=== PATIENT | male | born 1950 | race Caucasian/White ===

== ENCOUNTER 2018-04-24 11:19 | Inpatient (IN) ==
[~2018-04-24 11:19] MED LIST: Lidocaine PF 1% Inj 5 ML Syringe INFILTRATN ONE; Phenylephrine/NS 1000 MCG/10ML Syringe IV.PUSH ONE
[2018-04-24] MEDS ORDERED: Metoprolol Tartrate 25 MG Tablet PO SCH (12:00)
[2018-04-24] MEDS ORDERED: Chlorhexidine Gluconate 2% 1 Pack (2 Cloths) TOPICAL SCH (12:00)
[2018-04-24] MEDS ORDERED: Sodium Chlor 0.9% Inj 500 ML IV.SIG SCH (12:00)
[2018-04-24] MEDS ORDERED: Dextrose 5%/NaCl 0.9% Inj 1,000 ML IV.SIG SCH (12:15)
[2018-04-24] MEDS ORDERED: Sugammadex Inj 200 MG/2 ML Vial IV.PUSH ONE (15:03)
--- NOTE | 2018-04-24 15:45 | P.OP ---
- Preoperative Diagnosis (1) Colon cancer - Postoperative Diagnosis (1) Colon cancer Date of procedure: 04/24/18 Anesthesia: СВЕТЛАНА Surgeon: Brayan Gann DO Operation and Findings: 67-year-old male who elected to undergo exploratory laparotomy by Dr. Hermosillo. Request made for bilateral ureteral catheter insertion. The patient was placed in the dorsal lithotomy position, prepped and draped in sterile fashion, received preprocedure buttocks and general endotracheal tube anesthesia was administered. 22 Brazilian cystoscope was inserted the bladder sanches cystoscopy did not reveal any abnormalities. Left ureteral orifice was identified inflammatory catheter was inserted in the left ureteral orifice over a 0.35 sensor wire. This was repeated on the right side without difficulty. A 16 Brazilian Schroeder catheter was then inserted and the catheters were attached to the Schroeder. The patient tolerated the procedure well.
[2018-04-24 16:38] LABS: Hematocrit 37.5 % (39.0-51.0); Hemoglobin 12.3 gm/dL (13.0-17.0)
[2018-04-24] MEDS ORDERED: fentaNYL Citrate Inj 100 MCG/2 ML Ampul ONE (17:22)
[2018-04-24] MEDS ORDERED: Potassium Chlor 20 mEq Premix 20 MEQ/100 ML PIGGYBACK IV.SIG PRN (17:47)
[2018-04-24] MEDS ORDERED: Potassium Chlor 40 mEq Premix 40 MEQ/100 ML PIGGYBACK IV.SIG PRN (17:47)
[2018-04-24] MEDS ORDERED: Dextrose 50% in Water 50 ML Vial IV.PUSH PRN (17:54)
[2018-04-24] MEDS ORDERED: Zolpidem Tartrate 5 MG Tablet PO PRN (17:54)
[2018-04-24] MEDS ORDERED: Morphine Inj 4 MG/ML Vial ONE ×2 (18:07)
[2018-04-24] MEDS ORDERED: Morphine Inj 30 MG/30 ML PCA.VIAL PCA ONE (18:17)
[2018-04-24] MEDS ORDERED: *morphine SULFATE 4 MG/ML PERIprocedure ONLY ONE ×3 (18:17→19:06)
[2018-04-24] MEDS ORDERED: *Meperidine Inj 25 MG/ML Vial PERIprocedural Use ONLY ONE (18:35)
[2018-04-24] MEDS ORDERED: Morphine Inj 30 MG/30 ML PCA.VIAL PCA PRN (18:35)
[2018-04-24] MEDS ORDERED: Naloxone Inj 0.4 MG/ML Vial IV.PUSH PRN (18:35)
[2018-04-24] MEDS: KCL 20 mEq/D5W/LR Inj 1,000 ML IV.CONT SCH ×2 (18:38→23:02)
[2018-04-24] MEDS: Insulin NovoLIN Regular Correctional Sugar Inj SQ SCH ×2 (18:47→23:22)
[2018-04-24 18:53] LABS: Baso % (Auto) 0.3 % (0.0-2.0); Eos % (Auto) 0.1 % (0.0-4.0); Hematocrit 36.6 % (39.0-51.0); Hemoglobin 12.3 gm/dL (13.0-17.0); Lymph # (Auto) 1.1 th/mm3 (1.0-4.8); Lymph % (Auto) 7.7 % (9.0-44.0); Mean Corpuscular HGB Conc 33.5 % (32.0-36.0); Mean Corpuscular Hemoglobin 30.3 pg (27.0-34.0); Mean Corpuscular Volume 90.4 fL (80.0-100.0); Mean Platelet Volume 8.5 fL (7.0-11.0); Mono % (Auto) 7.2 % (0.0-8.0); Neut # (Auto) 11.9 th/mm3 (1.8-7.7); Neut % (Auto) 84.7 % (16.0-70.0); Platelet Count 258 th/mm3 (150-450); Red Blood Count 4.04 mil/mm3 (4.50-5.90); Red Cell Distribution Width 14.4 % (11.6-17.2)
[2018-04-24 19:06] LABS: Calcium 7.8 mg/dL (8.5-10.1); Carbon Dioxide 20.9 meq/L (21.0-32.0); Potassium 3.9 meq/L (3.5-5.1)
--- NOTE | 2018-04-24 19:59 | MP ---
cc: Vitaliy Salinas MD, John T MD DATE OF OPERATION: 04/24/2018 PREOPERATIVE DIAGNOSIS: 1. Recurrent rectal polyp at colorectal anastomosis. 2. Large lower abdominal ventral hernia. POSTOPERATIVE DIAGNOSIS: 1. Recurrent villous polyp at colorectal anastomosis. 2. Large inferior ventral hernia. OPERATIVE PROCEDURES: 1. Extensive lysis of adhesions. 2. Rectosigmoidectomy with low anterior resection and diverting ileostomy. 3. Repair of enterotomy. 4. Ventral hernia repair. SURGEON: Vitaliy Salinas MD PLASTER PATTERN CASTER: Jonah Oreilly MD ANESTHESIA: General endotracheal. BLOOD LOSS: 800 mL OPERATING TIME 3 hours and 10 minutes. OPERATIVE FINDINGS: This patient was referred to md with a recurrent large villous lesion circumferentially around his colorectal anastomosis. He had his first surgery in [address] Barron Hendrickson in [place]. At that time, it was quite a difficult operation. It was started laparoscopically and then open surgery; 2000 mL of blood were lost and the patient was quite ill postoperatively in the intensive care unit but recovered. At that time, they felt that they resected this whole villous lesion and a colorectal anastomosis was done. The patient developed a wound infection in the lower abdomen and then a large ventral hernia and went to Dr. Otto who did a repair of ventral hernia with Dual mesh intraabdominally. Since that time, the ventral hernia has recurred in the lower abdomen and the patient recurred with this villous lesion circumferentially around his anastomosis. Also, the patient was found to have a heavy gauge Prolene suture that was visible on endoscopy at the anastomosis. The original surgery was done in 2012. The ventral hernia was done in 2013. Exploration of the abdominal cavity revealed that the liver and the gallbladder were all palpably normal. The colon and small bowel was all normal except a significant portion of the upper small bowel was stuck to his mesh anteriorly and needed to be dissected free. In retracting the fascia, a serosal tear was made in one of the small bowel loops and at repair of this serosal tear transversely there was a mucosal opening about a millimeter in size, but no leakage of small bowel contents. The small bowel enterotomy was closed with interrupted 3-0 Vicryl seromuscular sutures. This was inspected several times during the procedure and, at the termination of the procedure, appeared to be an adequate repair. Our attention was turned to the sigmoid colon, which was found to be hugely redundant with adequate length for colorectal anastomosis without mobilizing the splenic flexure. He also had densely adherent rectum to the sacrum and needed sharp dissection right along the sacrum posteriorly and with electrocautery to mobilize this, but once the rectum was mobilized the lower rectum was soft and a stapler was able to be used close the lower rectum and a colorectal anastomosis was done with a diverting ileostomy. Upon opening the specimen, it was noted that the polyp was fully removed and the specimen, but at this area of the Prolene suture it was noted that there was a small hole in the rectum; however, it did not appear to contain any of the villous tumor. This clearly occurred at the time of mobilizing this densely scarred rectum off of his sacrum. OPERATIVE TECHNIQUE: The patient was placed on the table in the supine position. After adequate general endotracheal anesthesia, the legs were placed in the perineal lithotomy position and the abdomen and perineum were prepped and draped in the usual manner. Dr. Brayan aGnn eventually entered the case and placed bilateral ureteral catheters for easy identification and protection of the ureters. After the abdomen was prepped and draped in the usual manner, a midline incision was made from pubis to the xiphoid and the upper part of the abdomen had never been opened and we entered the abdomen in the upper part of the abdomen. The adhesions of the small bowel in the upper portion were stuck to the mesh just at the level of the umbilicus. They were dissected free of the mesh fairly easily with sharp dissection. Upon placing traction on the fascia and the mesh, an area of serosal tear was made in one of the small bowel loops and, on inspection, there was a small hole in the mucosa as well. This was repaired with several interrupted 3-0 Vicryl seromuscular sutures. Once all the adhesions were taken down, we turned our attention to the left colic gutter and the sigmoid colon, which was hugely redundant, was mobilized along its peritoneal reflection up to but not including the splenic flexure. Next, the superior hemorrhoidal vessels had not been fully previously divided and we went ahead and isolated those and then doubly clamped, cut, and doubly ligated the superior hemorrhoidal vessels, really the inferior mesenteric artery complex with 0 Vicryl ligatures. Once this was completed, the retrorectal space was identified and dissection was taken down the retrorectal space and the dense fibrosis from the previous mobilization and anastomosis. We encountered this heavy Prolene suture and it was dissected free of the sacrum again, apparently making a small colotomy at the area of the anastomosis near the villous tumor but no villous lesion was identified here. This was densely stuck to the sacrum and needed to be sharply dissected free as well as use of electrocautery until the lower rectum was mobilized down to the pelvic floor. Next, the mesorectum approximally 4-5 cm distal to the previous anastomosis was cleared with electrocautery and then the rectum was stapled closed with a TX 60 green staple height stapler and the rectum was divided. We then chose a point in the sigmoid colon for division and the sigmoid vessels were clamped, cut, and ligated and the sigmoid colon was cleared and a pursestring stapling device was used. The anvil of the 33 Ethicon EEA stapler was placed in the proximal bowel and the pursestring was tied. Dr. Oreilly then went below and placed the EEA instrument transanally and brought the trocar out through the mid portion of the staple line and the instrument was connected and the anastomosis was created. The descending and sigmoid colon were free of any tension and the blood supply was excellent to the bowel. Dr. Oreilly then did sigmoidoscopy examination insufflating air into the rectum and saline solution was placed in the pelvis and no air leaks were identified. Hemostasis was maintained throughout with electrocautery and ligature. There was oozing throughout the case going through the dense fibrosis and caused an 800 mL total blood loss. The pelvis was irrigated with saline solution using approximately 2000 mL. The remainder of the abdomen was irrigated with 1000 mL of saline solution, aspirated dry. Our attention was turned to the terminal ileum and an opening in the mesentery was created for the ileostomy and the distal portion of the ileum was stapled closed with a TX 60 blue staple height stapler. Once this was done, a stoma site was made in the right upper quadrant. The bowel was brought out through the stoma site. Next, our attention was turned to the extensive abdominal wall hernia and the hernia sac was excised. The fascia was mobilized inferior to the umbilicus mobilizing it from the subcutaneous tissue and the mesh that had been previously divided was left in place. Next, the abdominal contents were replaced in the abdomen in an dentistry teacher manner and the abdomen was closed using a double-stranded #1 PDS for the entire length of the fascia. It should be mentioned that a drain was previously placed in the pelvis, A 10 flat Nelson drain, and brought out through a separate stab wound in the right lower quadrant. Once this was done, subcutaneous tissue was irrigated thoroughly with 2 liters of saline solution, aspirated dry and the skin was closed with skin ray. The ileostomy was matured with interrupted 3-0 Vicryl sutures and a 57 mm appliance was placed. Dressings were applied. Sponge, needle and instrument counts were reported as correct. The estimated blood loss was 800 mL. Operating time was 3 hours and 10 minutes. The patient tolerated the procedure well and left the operating room in good condition. MD IDALIA Jean-Baptiste/ , 07:21 PM , 07:38 PM
[2018-04-24] MEDS: Ketorolac Inj 30 MG/ML (IVP) Vial IV.PUSH PRN (21:04)
[2018-04-24] MEDS: Lisinopril 20 MG Tablet PO SCH (21:06)
[2018-04-25] MEDS: Insulin NovoLIN Regular Correctional Sugar Inj SQ SCH ×3 (02:43→05:29)
[2018-04-25] MEDS: ceFAZolin 2 GM Premix Inj 2 GM/50 ML PIGGYBACK IV.SIG SCH ×3 (02:44→18:33)
[2018-04-25] MEDS: Ketorolac Inj 30 MG/ML (IVP) Vial IV.PUSH PRN (05:41)
[2018-04-25 06:03] LABS: Baso % (Auto) 0.1 % (0.0-2.0); Hematocrit 37.2 % (39.0-51.0); Hemoglobin 12.3 gm/dL (13.0-17.0); Lymph # (Auto) 0.3 th/mm3 (1.0-4.8); Mean Corpuscular HGB Conc 33.2 % (32.0-36.0); Mean Corpuscular Hemoglobin 30.2 pg (27.0-34.0); Mean Corpuscular Volume 90.9 fL (80.0-100.0); Mean Platelet Volume 8.7 fL (7.0-11.0); Mono # (Auto) 1.3 th/mm3 (0.0-0.9); Mono % (Auto) 7.7 % (0.0-8.0); Neut # (Auto) 15.5 th/mm3 (1.8-7.7); Neut % (Auto) 90.2 % (16.0-70.0); Platelet Count 252 th/mm3 (150-450); Red Blood Count 4.09 mil/mm3 (4.50-5.90); Red Cell Distribution Width 14.3 % (11.6-17.2); White Blood Count 17.1 th/mm3 (4.0-11.0)
[2018-04-25 06:28] LABS: Potassium 4.5 meq/L (3.5-5.1)
[2018-04-25] MEDS ORDERED: Dextrose 50% in Water 50 ML Vial IV.PUSH PRN ×2 (07:19→15:05)
[2018-04-25] MEDS ORDERED: Insulin Regular (For Infusion) 100 UNIT in Sodium Chlor 0.9% Inj 99 ML IV.CONT PRN ×2 (07:19→12:00)
[2018-04-25] MEDS: Pantoprazole Inj 40 MG Vial IV.PUSH SCH (09:34)
[2018-04-25] MEDS: Lisinopril 20 MG Tablet PO SCH ×2 (09:35→20:38)
[2018-04-25] MEDS: Atropine 1% Opth Drops 2 ML Bottle RIGHT EYE SCH (09:47)
--- NOTE | 2018-04-25 13:54 | P.PNWCN ---
Wound Care Nurse Consult Description: Consult for New Ostomy Teaching of RUQ ILEOSTOMY per Dr Salinas. Communicated with: Patient Significant other Recommendation: Assess stoma for color, moisture, and output. Empty pouch of effluent when 1/3-1/2 full. Change pouching system every 3-5 days and PRN for leaks. Additional information: Patient seen on 3 for ostomy assessment and teaching. Bowel Diversion Stoma - Bowel Stoma Ileostomy Stoma Appearance: Protruding, Round (red, moist, functioning) Collection Device: Two-piece - Additional Information Additional Information: Ileostomy noted on right side abdomen was visualized and noted to be functioning with green effluent in pouch that was not emptied at this time. Teaching was done regarding the ostomy function and appearance, pouching options , food and medication, dehydration. Educational material left at bedside. Patient will be followed up with next week.
--- NOTE | 2018-04-25 16:15 | P.PNCS ---
Subjective Interval history: No N or V now. Stooling thru Ileostomy. Not too much pain. Transferred to [facility] for Insulin drip. BS now in 150-170 range. Will change back to SQ coverage Q 4Hr. Objective Result Diagrams: 04/25/18 04:36 04/25/18 04:36 Objective Remarks: VS-S Abd: soft. Dressing dry. Ileostomy pink. I&Os and labs -OK Assessment and Plan - Plan IMP: S/P Redo LAR for colon polyp Plan: Ureteral catheters both removed today. Decrease IVS. OOB in chair. D/C ballard in AM. Started CLD today slowly. FLD ordered for tomorrow
[2018-04-25] MEDS: Insulin NovoLOG Aspart Correctional Sugar Inj SQ SCH ×2 (18:35→20:38)
[2018-04-26 03:55] LABS: Baso % (Auto) 0.1 % (0.0-2.0); Eos % (Auto) 0.1 % (0.0-4.0); Hematocrit 29.7 % (39.0-51.0); Hemoglobin 10.1 gm/dL (13.0-17.0); Lymph % (Auto) 5.2 % (9.0-44.0); Mean Corpuscular Volume 91.1 fL (80.0-100.0); Mean Platelet Volume 8.6 fL (7.0-11.0); Mono # (Auto) 1.7 th/mm3 (0.0-0.9); Mono % (Auto) 8.6 % (0.0-8.0); Neut # (Auto) 17.2 th/mm3 (1.8-7.7); Platelet Count 216 th/mm3 (150-450); Red Blood Count 3.26 mil/mm3 (4.50-5.90); Red Cell Distribution Width 14.4 % (11.6-17.2)
[2018-04-26 04:43] LABS: Calcium 7.6 mg/dL (8.5-10.1); Carbon Dioxide 23.9 meq/L (21.0-32.0); Potassium 4.5 meq/L (3.5-5.1)
[2018-04-26] MEDS ORDERED: Dextrose 50% in Water 50 ML Vial IV.PUSH PRN (05:32)
[2018-04-26] MEDS: Insulin NovoLOG Aspart Correctional Sugar Inj SQ SCH ×3 (05:53→13:41)
[2018-04-26] MEDS: Pantoprazole Inj 40 MG Vial IV.PUSH SCH (09:14)
[2018-04-26] MEDS: Lisinopril 20 MG Tablet PO SCH ×2 (09:22→20:44)
[2018-04-26] MEDS: Atropine 1% Opth Drops 2 ML Bottle RIGHT EYE SCH (09:22)
--- NOTE | 2018-04-26 11:05 | P.PNCS ---
Subjective Interval history: C/R Surg POD afebrile, VSS UO good FAUSTO mod stoma funct Objective Result Diagrams: 04/26/18 03:27 04/26/18 03:27 Objective Remarks: PE alert Abd - soft, wound dry, stoma funct Assessment and Plan - Plan IMP: OOB adv diet slowly decr IVF tx to floor
[2018-04-27] MEDS ORDERED: Sod Chloride 0.9% Inj 1,000 ML IV.SIG ONE (03:15)
[2018-04-27] MEDS ORDERED: D5W BOLUS OVER IV.SIG ONE (03:15)
[2018-04-27] MEDS ORDERED: AMIODARONE IV.SIG ONE (03:15)
[2018-04-27] MEDS ORDERED: Amiodarone Inj 150 MG in Dextrose 5% in Water Inj 97 ML IV.SIG ONE ×2 (03:31)
[2018-04-27] MEDS ORDERED: Dextrose 50% in Water 50 ML Vial IV.PUSH PRN (03:37)
[2018-04-27 04:00] LABS: Baso % (Auto) 0.3 % (0.0-2.0); Eos # (Auto) 0.1 th/mm3 (0.0-0.4); Eos % (Auto) 0.5 % (0.0-4.0); Hematocrit 30.3 % (39.0-51.0); Hemoglobin 10.1 gm/dL (13.0-17.0); Lymph # (Auto) 1.5 th/mm3 (1.0-4.8); Lymph % (Auto) 8.7 % (9.0-44.0); Mean Corpuscular HGB Conc 33.4 % (32.0-36.0); Mean Corpuscular Hemoglobin 30.3 pg (27.0-34.0); Mean Corpuscular Volume 90.8 fL (80.0-100.0); Mean Platelet Volume 8.6 fL (7.0-11.0); Mono # (Auto) 1.1 th/mm3 (0.0-0.9); Mono % (Auto) 6.5 % (0.0-8.0); Neut # (Auto) 14.3 th/mm3 (1.8-7.7); Platelet Count 219 th/mm3 (150-450); Red Blood Count 3.34 mil/mm3 (4.50-5.90); Red Cell Distribution Width 14.3 % (11.6-17.2); White Blood Count 17.1 th/mm3 (4.0-11.0)
[2018-04-27] MEDS ORDERED: Calcium Chloride Inj 2 GM in Sodium Chlor 0.9% Inj 100 ML IV.SIG ONE (04:00)
--- NOTE | 2018-04-27 04:16 | P.CONCC ---
History of Present Illness Service: Critical care medicine Consult date: 04/27/18 Primary Care Provider: Rashaun Ramon DO Family Provider: Rashaun Ramon DO Chief Complaint: Rapid A. fib with RVR History of Present Illness: 67-year-old very pleasant gentleman with past medical history of diabetes mellitus, hypertension underwent elective redo low anterior resection for colonic polyp. Postoperatively patient was admitted to ICU for insulin drip due to uncontrolled hyperglycemia that has been improved. Early in the morning today 04/27 patient has developed a rapid A. fib with RVR with paroxysmal nonsustained runs of V. tach. The patient denies chest pain, shortness of breath, nausea or vomiting or any other associated symptoms. 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, managed as type 1 Hypertension Insulin pump in place Sleep apnea with use of continuous positive airway pressure (CPAP) Wears dentures Wears glasses - Surgical History Surgical History: Surgical History (Last Reviewed 04/24/18 @ 12:29 by Katelin Matt RN) History of partial colectomy History of sinus surgery Hx of eye surgery - Tobacco History Second Hand Smoke Exposure: Yes Tobacco Use In Past 30 Days: No Smoking Status: Former smoker Tobacco Type: Cigarettes - Alcohol History How Often Do You Have a Drink Containing Alcohol: 4 or more times a week - Substance Use History Substance History: No History of Abuse - Travel History Recent Travel in the [place] Within the Last 8 Weeks: Yes Recent Travel Out of the Country Within the Last 8 Weeks: No Medications and Allergies Active Medications: Active Medications Hydrocodone Bitart/Acetaminophen ([place] 5/325) 2 tab PO Q4H PRN PRN Reason: PAIN SCALE 5 TO 10 Last Admin: 04/26/18 23:44 Dose: 2 tab Hydrocodone Bitart/Acetaminophen ([place] 5/325) 1 tab PO Q4H PRN PRN Reason: PAIN SCALE 1 TO 4 Last Admin: 04/26/18 17:26 Dose: 1 tab Alvimopan (Entereg) 12 mg PO BID GAYLE Stop: 05/01/18 21:01 Last Admin: 04/26/18 20:44 Dose: 12 mg Atropine Sulfate (Isopto Atropine 1% Opth Drops) 1 drops RIGHT EYE DAILY [facility] Last Admin: 04/26/18 09:22 Dose: 1 drops Benzocaine/Menthol (Chloraseptic Sore Throat Lozenge) 1 lozenge BUCCAL PRN PRN PRN Reason: SORE THROAT Dextrose (D50w Vial) 50 ml IV.PUSH UNSCH PRN PRN Reason: PER HYPOGLYCEMIA PROTOCOL Enalaprilat (Vasotec Inj) 1.25 mg IV.PUSH Q4H PRN PRN Reason: SBP > 160 mmHg Last Admin: 04/27/18 01:04 Dose: 1.25 mg Furosemide (Lasix Inj) 20 mg IV.PUSH Q12HR [facility] Stop: 04/27/18 09:01 Last Admin: 04/26/18 20:44 Dose: 20 mg Glucagon (Glucagon Inj) 1 mg OTHER PRN PRN PRN Reason: for Hypoglycemia Protocol Hydrochlorothiazide (Hydrodiuril) 50 mg PO DAILY [facility] Potassium Chloride (Kcl 20 Meq Premix Inj) 20 meq in 100 mls @ 50 mls/hr IV.SIG UNSCH PRN PRN Reason: for K+ level 3.0-3.5 Potassium Chloride (Kcl 40 Meq Premix Inj) 40 meq in 100 mls @ 25 mls/hr IV.SIG UNSCH PRN PRN Reason: for K= level < 3.0 Potassium Chloride 20 meq/ (Lactated Ringer's) 1,010 mls @ 60 mls/hr IV.CONT .[id number] [facility] Last Admin: 04/26/18 22:43 Dose: 100 mls/hr Amiodarone HCl 450 mg/ (Dextrose) 250 mls @ 33.33 mls/hr IV.CONT TITRATE PRN; Protocol PRN Reason: Per Protocol Calcium Chloride 2 gm/ Sodium (Chloride) 120 mls @ 120 mls/hr IV.SIG ONCE ONE Stop: 04/27/18 04:59 Insulin Human Regular (Novolin R Correctional Sugar Inj) 0 units SQ ACHS [facility]; Protocol Lisinopril (Prinivil) 20 mg PO BID [facility] Last Admin: 04/26/18 20:44 Dose: 20 mg Metformin HCl (Glucophage) 1,000 mg PO BID [facility] Last Admin: 04/26/18 20:47 Dose: 1,000 mg Metoclopramide HCl (Reglan Inj) 10 mg IV.PUSH Q6HR PRN; Protocol PRN Reason: NAUSEA Last Admin: 04/26/18 23:45 Dose: 10 mg Naloxone HCl (Narcan Inj) 0.4 mg IV.PUSH PRN PRN PRN Reason: Resp rate < 10 Ondansetron HCl (Zofran Odt) 4 mg PO Q6H PRN PRN Reason: NAUSEA OR VOMITING Last Admin: 04/26/18 16:36 Dose: 4 mg Pantoprazole Sodium (Protonix Inj) 40 mg IV.PUSH DAILY [facility] Last Admin: 04/26/18 09:14 Dose: 40 mg Povidone Iodine (Betadine 5% Antisepsis Kit) 1 applicatio EACH NARE GASOLINE ENGINE INSPECTOR [facility] Stop: 04/27/18 11:56 Last Admin: 04/24/18 12:43 Dose: 1 applicatio Sodium Chloride (Ns Flush) 2 ml IV.FLUSH PRN PRN PRN Reason: FLUSH AFTER USING IV ACCESS Sodium Chloride (Ns Flush) 2 ml IV.FLUSH BID [facility] Last Admin: 04/26/18 20:47 Dose: 2 ml Zolpidem Tartrate (Ambien) 5 mg PO HS PRN PRN Reason: INSOMNIA Allergies Allergy/AdvReac Type Severity Reaction Status Date / Time No Known Allergies Allergy Verified 04/24/18 12:22 Home Medications Medication Instructions Recorded Confirmed Type atropine 1 drop RIGHT EYE DAILY 04/17/18 04/24/18 History hydrochlorothiazide 50 mg PO QAM 04/17/18 04/24/18 History insulin aspart U-100 [Novolog 1 sliding scale dose SUB-Q UD 04/17/18 04/24/18 History U-100 Insulin aspart] lisinopril 20 mg PO BID 04/17/18 04/24/18 History metformin 1,000 mg PO BID 04/17/18 04/24/18 History [id number]-vit K 1 tab PO DAILY 04/17/18 04/24/18 History [Adults Multivitamin] subcutaneous insulin pump 04/24/18 04/24/18 History Physical Exam Vital signs: Vital Signs 04/26/18 05:00 04/26/18 05:52 04/26/18 06:00 Temperature Pulse Rate 119 H 118 H Respiratory Rate 22 Blood Pressure Pulse Oximetry 04/26/18 07:00 04/26/18 08:00 04/26/18 11:00 Temperature 97.9 F Pulse Rate 110 H Respiratory Rate 14 16 14 Blood Pressure 124/59 L Pulse Oximetry 04/26/18 12:00 04/26/18 15:00 04/26/18 16:00 Temperature 98.4 F 99.3 F Pulse Rate 108 H 112 H Respiratory Rate 18 14 18 Blood Pressure 164/72 H Pulse Oximetry 94 L 04/26/18 19:00 04/27/18 01:14 Temperature Pulse Rate 111 H Respiratory Rate 17 Blood Pressure Pulse Oximetry Intake & Output 04/26/18 04/26/18 04/27/18 06:59 18:59 06:59 Intake Total 520 / 520 2270 / 2270 1000 / 1000 Output Total 1290 / 1290 1200 / 1200 120 / 120 Balance -770 / -770 1070 / 1070 880 / 880 Weight 121.1 kg Intake: IV 1010 / 1010 1000 / 1000 KCl Inj 20 MEQ In LR 1000 mL 1010 / 1010 1000 / 1000 Inj 1,000 ML @ 60 mls/hr IV. CONT .[id number] [facility] Rx#:[id number] Oral 520 / 520 1260 / 1260 Output: Urine 1200 / 1200 Urine Amount (Catheter) 1200 / 1200 Indwelling Urethral Catheter 1200 / 1200 Stool Amount (Stoma) 50 / 50 100 / 100 Ileostomy 50 / 50 100 / 100 Wound Drainage 40 / 40 20 / 20 # 1 Abdomen FAUSTO Drain 40 / 40 20 / 20 - Constitutional mild distress - Routine HEENT Exam Head: Present: normocephalic, atraumatic Eye: Absent: conjunctival icterus, scleral injection ENT: Present: mucous membranes moist - Routine Neck Exam Present: supple, full ROM. Absent: JVD, carotid bruit - Routine Respiratory Exam Absent: accessory muscle use, rhonchi, stridor, wheezes - Routine Cardiovascular Exam Present: tachycardia, irregularly irregular. Absent: gallop, rubs, JVD - Routine Abdominal Exam Present: soft, normoactive bowel sounds, ostomy. Absent: tenderness, distended - Routine Extremities Exam Absent: cyanosis, clubbing, edema - Routine Neurological Exam Present: alert, oriented X3. Absent: sensory deficit, motor deficit - Detailed Neurological Exam: Coma Scale Eye Opening: Spontaneous Verbal Response: Oriented Motor Response: Obey commands Webster Coma Scale Total: 15 - Routine Psychiatric Exam Present: normal affect - Urinary Catheter Management Indwelling Urethral Catheter Cath placed during this visit: yes Reason for continuing: Hourly intake/output Insertion date: 04/24/18 Insertion time: 15:35 Assessment and Plan - Assessment and Plan Plan: Shruthi turner with RVR -Borderline hypotension -Improved with amiodarone bolus push -We will follow with the infusion -Rule out acute coronary syndrome -Series of troponins -Electrolytes pending Colonic polyp -Status post resection -Alvimopan per colorectal surgery -Further management per surgeon Hypertension -Continue Vasotec as needed -Lasix -Hydrochlorothiazide -Lisinopril Diabetes mellitus -Metformin -Insulin sliding scale -Resume home dose of Levemir when advance diet DVT GI prophylaxis -Teds SCDs -Pharmacological DVT prophylaxis per surgeon -Protonix Critical Care: The total critical care time was 35 minutes. Time to perform other separately billable procedures was not included in the critical care time.
[2018-04-27 04:35] LABS: Alanine Aminotransferase 17 U/L (12-78); Albumin 2.7 g/dL (3.4-5.0); Anion Gap 11 meq/L (5-15); Aspartate Aminotransferase 16 U/L (15-37); Blood Urea Nitrogen 21 mg/dL (7-18); Calcium 7.7 mg/dL (8.5-10.1); Carbon Dioxide 22.9 meq/L (21.0-32.0); Chloride 103 meq/L (98-107); Glomerular Filtration Rate 60 mL/min (>89); Glucose,Random 215 mg/dL (74-106); Magnesium 1.9 mg/dL (1.5-2.5); Potassium 4.4 meq/L (3.5-5.1); Sodium 137 meq/L (136-145)
[2018-04-27 04:39] LABS: Alkaline Phosphatase 63 U/L (45-117); Phosphorus 1.8 mg/dL (2.5-4.9); Total Protein 5.7 g/dL (6.4-8.2)
[2018-04-27] MEDS ORDERED: Potassium Phosphate Inj 30 MMOL in Sodium Chlor 0.9% Inj 250 ML IV.SIG PRN (07:38)
[2018-04-27] MEDS ORDERED: Magnesium Sulfate Inj 4 GM in Sodium Chlor 0.9% Inj 92 ML IV.SIG PRN (07:38)
[2018-04-27] MEDS ORDERED: Sodium Phosphate Inj 30 MMOL in Sodium Chlor 0.9% Inj 250 ML IV.SIG PRN (07:38)
[2018-04-27] MEDS ORDERED: Potassium Chloride 25 MEQ Effervescent Tablet PO PRN (07:38)
[2018-04-27] MEDS ORDERED: Potassium Phosphate 500 MG Soluble Tablet PO PRN ×2 (07:38)
[2018-04-27] MEDS ORDERED: Magnesium Sulfate Inj 2 GM in Sodium Chlor 0.9% Inj 96 ML IV.SIG PRN (07:38)
[2018-04-27] MEDS ORDERED: Magnesium Oxide 400 MG Tablet PO PRN (07:38)
[2018-04-27] MEDS ORDERED: Potassium Chlor 20 mEq Premix 20 MEQ/100 ML PIGGYBACK IV.SIG PRN ×2 (07:38)
[2018-04-27] MEDS ORDERED: Potassium Chlor 40 mEq Premix 40 MEQ/100 ML PIGGYBACK IV.SIG PRN ×2 (07:38)
[2018-04-27] MEDS ORDERED: Insulin NovoLIN Regular Correctional Sugar Inj SQ SCH (08:00)
[2018-04-27] MEDS: Pantoprazole Inj 40 MG Vial IV.PUSH SCH (10:50)
[2018-04-27] MEDS: Lisinopril 20 MG Tablet PO SCH ×2 (10:51→20:52)
[2018-04-27] MEDS: Atropine 1% Opth Drops 2 ML Bottle RIGHT EYE SCH (10:53)
--- NOTE | 2018-04-27 11:35 | P.PNCS ---
Subjective Interval history: C/R Surg POD afebrile, VSS - HR 170, A fib UO good stoma functioning Objective Result Diagrams: 04/27/18 03:45 04/27/18 03:45 Objective Remarks: PE alert Abd - soft, wound dry, liq stoma output Assessment and Plan - Plan IMP: OOB adv diet slowly Wean drip prn HR PT dc plans - switch to PO meds
[2018-04-27] MEDS: Metoprolol Inj 5 MG/5 ML Vial IV.PUSH SCH ×2 (23:47→23:52)
[2018-04-28] MEDS: Metoprolol Inj 5 MG/5 ML Vial IV.PUSH SCH (00:03)
[2018-04-28] MEDS ORDERED: Amiodarone Inj 150 MG in Dextrose 5% in Water Inj 97 ML IV.SIG ONE ×2 (00:37)
[2018-04-28 05:07] LABS: Baso % (Auto) 0.3 % (0.0-2.0); Eos # (Auto) 0.1 th/mm3 (0.0-0.4); Eos % (Auto) 1.2 % (0.0-4.0); Hemoglobin 9.8 gm/dL (13.0-17.0); Lymph % (Auto) 7.8 % (9.0-44.0); Mean Corpuscular HGB Conc 33.9 % (32.0-36.0); Mean Corpuscular Hemoglobin 30.1 pg (27.0-34.0); Mean Corpuscular Volume 88.8 fL (80.0-100.0); Mean Platelet Volume 8.4 fL (7.0-11.0); Mono # (Auto) 1.1 th/mm3 (0.0-0.9); Mono % (Auto) 8.3 % (0.0-8.0); Neut # (Auto) 10.6 th/mm3 (1.8-7.7); Neut % (Auto) 82.4 % (16.0-70.0); Platelet Count 248 th/mm3 (150-450); Red Blood Count 3.27 mil/mm3 (4.50-5.90); Red Cell Distribution Width 14.2 % (11.6-17.2); White Blood Count 12.9 th/mm3 (4.0-11.0)
[2018-04-28 05:28] LABS: Calcium 8.2 mg/dL (8.5-10.1); Carbon Dioxide 28.6 meq/L (21.0-32.0); Potassium 3.9 meq/L (3.5-5.1)
--- NOTE | 2018-04-28 07:42 | P.PNCC ---
Subjective Subjective Remarks/Hospital Course: 67-year-old very pleasant gentleman with past medical history of diabetes mellitus, hypertension underwent elective redo low anterior resection for colonic polyp. Postoperatively patient was admitted to ICU for insulin drip due to uncontrolled hyperglycemia that has been improved. Early in the morning today 04/27 patient has developed a rapid A. fib with RVR with paroxysmal nonsustained runs of V. tach. The patient denies chest pain, shortness of breath, nausea or vomiting or any other associated symptoms. SUBJECTIVE: 04/28: Patient developed atrial fibrillation with rapid ventricular response overnight with a heart rate in the 170s1.5 g. Received 5 mg metoprolol tartrate IV 3 along with an amiodarone bolus. Currently rate controlled on amiodarone drip at 0.5 mg/min. Will check troponins - < 0.02, TSH - 0474 the same. Replace potassium and magnesium.. Routine echocardiogram. Cardiology consultation. Received stress test prior to surgery. 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 No privileges here at [facility].. Denies chest pain or shortness of breath.. Objective Vital Signs / I&O: Vital Signs 04/27/18 08:00 04/27/18 11:00 04/27/18 12:00 Temperature 98.4 F 98.7 F Pulse Rate 97 H 101 H 104 H Respiratory Rate 18 13 Blood Pressure 168/78 H 160/72 H Pulse Oximetry 97 100 04/27/18 15:00 04/27/18 16:00 04/27/18 19:00 Temperature 98.3 F Pulse Rate 102 H 107 H 100 H Respiratory Rate 26 H Blood Pressure 162/73 H Pulse Oximetry 97 04/27/18 20:00 04/27/18 22:00 04/28/18 00:00 Temperature 98.2 F 98.5 F Pulse Rate 110 H 152 H 140 H Respiratory Rate 19 18 Blood Pressure 161/70 H 119/64 Pulse Oximetry 98 04/28/18 02:00 04/28/18 04:00 04/28/18 06:00 Temperature 98.3 F Pulse Rate 82 83 82 Respiratory Rate 18 Blood Pressure 144/52 H Pulse Oximetry Intake & Output 04/27/18 04/28/18 04/28/18 18:59 06:59 18:59 Intake Total 1510 / 1510 5082 / 5082 Output Total 3210 / 3210 2910 / 2910 Balance -1700 / -1700 2172 / 2172 Weight 120.1 kg Intake: IV 250 / 250 250 / 250 Cordarone Inj 450 MG In D5W Inj 250 / 250 250 / 250 241 ML @ 1 MG/MIN 33.33 mls/hr IV.CONT TITRATE PRN Rx#: [id number] Oral 1260 / 1260 600 / 600 Anesthesia Amount 3600 / 3600 Other 632 / 632 Output: Urine 3100 / 3100 1900 / 1900 Estimated Blood Loss 800 / 800 Stool Amount (Stoma) 100 / 100 200 / 200 Ileostomy 100 / 100 200 / 200 Wound Drainage # 1 Abdomen FAUSTO Drain Other: Date of Last Bowel Movement 04/27/18 04/28/18 # Bowel Movements 0 # Incontinent Bowel Movements 1 Result Diagrams: 04/28/18 04:20 04/28/18 04:20 Objective Remarks: GENERAL: 67-year-old male currently resting in bed on amiodarone drip SKIN: Warm and dry. HEAD: Atraumatic. Normocephalic. EYES: Right pupil currently dilated. Right eyelid droop. Left pupil 3 mm and reactive. ENT: No nasal bleeding or discharge. Mucous membranes pink and moist. NECK: Trachea midline. No JVD. CARDIOVASCULAR: RRR. S1, S2 no S 4. No murmur RESPIRATORY: No accessory muscle use. Clear to auscultation. Breath sounds equal bilaterally. GASTROINTESTINAL: Abdomen somewhat protuberant. Ostomy in right lower quadrant pink with stool. FAUSTO tube with yellowish drainage MUSCULOSKELETAL: Extremities with trace bilateral lower extremity edema. No obvious deformities. NEUROLOGICAL: Awake and alert. No obvious cranial nerve deficits. Motor grossly within normal limits. Five out of 5 muscle strength in the arms and legs. Normal speech. PSYCHIATRIC: Appropriate mood and affect; insight and judgment normal. Assessment and Plan - Assessment and Plan Plan: Neuro/Psych: Uveitis Acetaminophen 650 mg by mouth every 6 hours as needed fever Hydrocodone/acetaminophen 5/325 1 to tabs every 4 hours as needed pain Atropine drops 1% 1 drop right eye each night Zolpidem 5 mg at night as needed insomnia CV: Essential hypertension Atrial fibrillation with rapid ventricular response Currently on amiodarone drip at 0.5 mg/min. Patient reports stress test prior to surgery. 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 Will consult routine cardiology today is remains on amiodarone drip currently normal sinus rhythm Received digoxin 0.5 mg 1 now followed by 0.25 mg 6 hours. Check level in a.m. 04/29 TSH 0.474. Initial troponin is negative. Repeat pending on EKG and 2D echocardiogram Receiving 2 mg magnesium sulfate IV and 30 oral milliequivalents potassium chloride. Recheck this afternoon with second troponin Continue lisinopril 20 mg by mouth twice daily for essential hypertension On hydrochlorothiazide 50 mg daily at home Resp: Nasal cannula to maintain saturations greater than equal to 92% Incentive spirometry while awake As needed albuterol aerosols as needed for dyspnea Follow-up on chest x-ray GI: S/P Redo LAR for colon polyp by Dr. Salinas 04/25 Diabetic diet per GI surgery Pantoprazole for GI prophylaxis Patient is stooling Alvimopan per colorectal surgery -Further management per surgeon with Entereg 12 mg twice daily/prokinetic : Status post bilateral Schroeder catheter insertion by urology. Removed Endo: IDDM Insulin pump with aspart U 100 per patient. Patient is managing with pump and left lower quadrant Metformin 1000 mg twice daily We will maintain euglycemia for healing Renal: Acute kidney injury resolving Status post furosemide 20 mg IV twice daily 6 dosages completed Creatinine currently 1.01. Recheck in a.m. Monitor urine output with accurate I's and O's Heme: Leukocytosis Normocytic anemia Monitor CBC daily. Follow trends. No indication for transfusion of blood products at this time. ID: Monitor for signs and symptomatology of infection FEN: Replace electrolytes as clinically indicated. Goal keep magnesium greater than 2.0. Potassium greater than 4.0. Receiving electrolytes as above per cardiology section MSK: Physical therapy evaluate and treat Access -Utilize peripheral IV. Central line if indicated Prophylaxis -GI -pantoprazole -DVT -SCD/pharmacological prophylaxis when okay with colorectal surgery Level 3 follow-up Code Status: Full code Discussed Condition With: Patient. ISC RN. CARE plan discussed and all questions answered.
[2018-04-28] MEDS ORDERED: Digoxin Inj 500 MCG/2 ML Ampul IV.PUSH ONE ×2 (07:43→13:45)
--- NOTE | 2018-04-28 08:57 | P.CONCA ---
<Saul Fonseca - Last Filed: 04/28/18 08:46> History of Present Illness Primary Care Provider: Rashaun Ramon DO Family Provider: Rashaun Ramon DO Chief Complaint: Rapid A. fib with RVR History of Present Illness: 67-year-old male with past medical history IDDM who was admitted admitted for elective polypectomy and ileostomy with Dr. Salinas 04/24. Overnight on 04/27 the patient developed new onset atrial fibrillation with RVR. The patient denies any associated symptoms. Patient was started on amiodarone GTT and is currently NSR rate 90s. He denies any prior history of stroke or heart failure. His BP has been elevated, reports he has always been told his blood pressure has been controlled, does not check at home. Telemetry shows occasional PVCs, ventricular couplets. Patient has received 4 g of magnesium IV. TSH within normal limits. 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, managed as type 1 Hypertension Insulin pump in place Sleep apnea with use of continuous positive airway pressure (CPAP) Wears dentures Wears glasses - Surgical History Surgical History: Surgical History (Last Reviewed 04/24/18 @ 12:29 by Katelin Matt RN) History of partial colectomy History of sinus surgery Hx of eye surgery - Tobacco History Second Hand Smoke Exposure: Yes Tobacco Use In Past 30 Days: No Smoking Status: Former smoker Tobacco Type: Cigarettes - Alcohol History How Often Do You Have a Drink Containing Alcohol: 4 or more times a week - Substance Use History Substance History: No History of Abuse - Travel History Recent Travel in the [place] Within the Last 8 Weeks: Yes Recent Travel Out of the Country Within the Last 8 Weeks: No Medications and Allergies Allergies Allergy/AdvReac Type Severity Reaction Status Date / Time No Known Allergies Allergy Verified 04/24/18 12:22 Home Medications Medication Instructions Recorded Confirmed Type atropine 1 drop RIGHT EYE DAILY 04/17/18 04/24/18 History hydrochlorothiazide 50 mg PO QAM 04/17/18 04/24/18 History insulin aspart U-100 [Novolog 1 sliding scale dose SUB-Q UD 04/17/18 04/24/18 History U-100 Insulin aspart] lisinopril 20 mg PO BID 04/17/18 04/24/18 History metformin 1,000 mg PO BID 04/17/18 04/24/18 History [id number]-nolj-FA-vit K 1 tab PO DAILY 04/17/18 04/24/18 History [Adults Multivitamin] subcutaneous insulin pump 04/24/18 04/24/18 History Active Medications: Active Medications Acetaminophen (Tylenol Liq) 650 mg PO Q6H PRN PRN Reason: FEVER Hydrocodone Bitart/Acetaminophen ([place] 5/325) 2 tab PO Q4H PRN PRN Reason: PAIN SCALE 5 TO 10 Last Admin: 04/26/18 23:44 Dose: 2 tab Hydrocodone Bitart/Acetaminophen ([place] 5/325) 1 tab PO Q4H PRN PRN Reason: PAIN SCALE 1 TO 4 Last Admin: 04/26/18 17:26 Dose: 1 tab Alvimopan (Entereg) 12 mg PO BID G[facility]LE Stop: 05/01/18 21:01 Last Admin: 04/27/18 20:52 Dose: 12 mg Atropine Sulfate (Isopto Atropine 1% Opth Drops) 1 drops RIGHT EYE DAILY [facility] Last Admin: 04/27/18 10:53 Dose: 1 drops Benzocaine/Menthol (Chloraseptic Sore Throat Lozenge) 1 lozenge BUCCAL PRN PRN PRN Reason: SORE THROAT Dextrose (D50w Vial) 50 ml IV.PUSH UNSCH PRN PRN Reason: PER HYPOGLYCEMIA PROTOCOL Digoxin (Lanoxin Inj) 250 mcg IV.PUSH ONCE ONE Stop: 04/28/18 13:46 Diltiazem HCl (Cardizem Cd 24hr) 120 mg PO BID [facility] Enalaprilat (Vasotec Inj) 1.25 mg IV.PUSH Q4H PRN PRN Reason: SBP > 160 mmHg Last Admin: 04/27/18 17:26 Dose: 1.25 mg Glucagon (Glucagon Inj) 1 mg OTHER PRN PRN PRN Reason: for Hypoglycemia Protocol Hydrochlorothiazide (Hydrodiuril) 25 mg PO DAILY [facility] Magnesium Sulfate Inj 4 gm/ (Sodium Chloride) 100 mls @ 50 mls/hr IV.SIG UNSCH PRN PRN Reason: For Magnesium 0.9 - 1.1 mg/dL Magnesium Sulfate Inj 2 gm/ (Sodium Chloride) 100 mls @ 50 mls/hr IV.SIG UNSCH PRN PRN Reason: For Magnesium 1.2 - 1.6 mg/dL Potassium Chloride (Kcl 40 Meq Premix Inj) 40 meq in 100 mls @ 50 mls/hr IV.SIG Q2H PRN PRN Reason: For Potassium 2.8 - 3.2 mEq/L Potassium Chloride (Kcl 40 Meq Premix Inj) 40 meq in 100 mls @ 25 mls/hr IV.SIG UNSCH PRN PRN Reason: For Potassium 3.3 - 3.5 mEq/L Potassium Chloride (Kcl 20 Meq Premix Inj) 20 meq in 100 mls @ 50 mls/hr IV.SIG Q2H PRN PRN Reason: For Potassium 2.8 - 3.2 mEq/L Potassium Phosphate 30 mmol/ (Sodium Chloride) 260 mls @ 42 mls/hr IV.SIG UNSCH PRN PRN Reason: SEE LABEL COMMENTS Sodium Phosphate 30 mmol/ (Sodium Chloride) 260 mls @ 42 mls/hr IV.SIG UNSCH PRN PRN Reason: For Phosphorus < 2.5 mg/dL Last Infusion: 04/28/18 08:14 Dose: Infused Potassium Chloride (Kcl 20 Meq Premix Inj) 20 meq in 100 mls @ 50 mls/hr IV.SIG Q2H PRN PRN Reason: For Potassium 3.3 - 3.5 mEq/L Magnesium Sulfate/Dextrose (Magnesium Sulfate 1 Gm/D5w 100 Ml Premix) 100 mls @ 100 mls/hr IV.SIG Q1H [facility] Stop: 04/28/18 09:59 Lisinopril (Prinivil) 20 mg PO BID [facility] Last Admin: 04/27/18 20:52 Dose: 20 mg Metformin HCl (Glucophage) 1,000 mg PO BID [facility] Last Admin: 04/27/18 21:09 Dose: 1,000 mg Metoclopramide HCl (Reglan Inj) 10 mg IV.PUSH Q6HR PRN; Protocol PRN Reason: NAUSEA Last Admin: 04/26/18 23:45 Dose: 10 mg Naloxone HCl (Narcan Inj) 0.4 mg IV.PUSH PRN PRN PRN Reason: Resp rate < 10 Ondansetron HCl (Zofran Odt) 4 mg PO Q6H PRN PRN Reason: NAUSEA OR VOMITING Last Admin: 04/26/18 16:36 Dose: 4 mg Pantoprazole Sodium (Protonix Inj) 40 mg IV.PUSH DAILY [facility] Last Admin: 04/27/18 10:50 Dose: 40 mg Potassium Bicarb/Potassium Chloride (K-Lyte Cl Eff) 50 meq PO UNSCH PRN PRN Reason: For Potassium 3.3 - 3.5 mEq/L Potassium Phosphate (K-Phos Original) 2,000 mg PO Q4H PRN PRN Reason: Phosphorus Less Than 2.5 mg/dL Potassium Phosphate (K-Phos Original) 2,000 mg PO UNSCH PRN PRN Reason: SEE LABEL COMMENTS Sodium Chloride (Ns Flush) 2 ml IV.FLUSH PRN PRN PRN Reason: FLUSH AFTER USING IV ACCESS Sodium Chloride (Ns Flush) 2 ml IV.FLUSH BID [facility] Last Admin: 04/27/18 20:53 Dose: 2 ml Zolpidem Tartrate (Ambien) 5 mg PO HS PRN PRN Reason: INSOMNIA Exam Vital signs: Vital Signs 04/27/18 11:00 04/27/18 12:00 04/27/18 15:00 Temperature 98.7 F Pulse Rate 101 H 104 H 102 H Respiratory Rate 13 Blood Pressure 160/72 H Pulse Oximetry 100 04/27/18 16:00 04/27/18 19:00 04/27/18 20:00 Temperature 98.3 F 98.2 F Pulse Rate 107 H 100 H 110 H Respiratory Rate 26 H 19 Blood Pressure 162/73 H 161/70 H Pulse Oximetry 97 98 04/27/18 22:00 04/28/18 00:00 04/28/18 02:00 Temperature 98.5 F Pulse Rate 152 H 140 H 82 Respiratory Rate 18 Blood Pressure 119/64 Pulse Oximetry 04/28/18 04:00 04/28/18 06:00 Temperature 98.3 F Pulse Rate 83 82 Respiratory Rate 18 Blood Pressure 144/52 H Pulse Oximetry Intake & Output 04/27/18 04/28/18 04/28/18 18:59 06:59 18:59 Intake Total 1510 / 1510 5082 / 5082 360 / 360 Output Total 3210 / 3210 2910 / 2910 Balance -1700 / -1700 2172 / 2172 360 / 360 Weight 264 lb 12.403 oz Intake: IV 250 / 250 250 / 250 360 / 360 Cordarone Inj 450 MG In D5W Inj 250 / 250 250 / 250 241 ML @ 1 MG/MIN 33.33 mls/hr IV.CONT TITRATE PRN Rx#: [id number] Cordarone Inj 150 MG In D5W Inj 100 / 100 97 ML @ 600 mls/hr IV.SIG ONCE ONE Rx#:[id number] Sodium Phosphate Inj 30 MMOL In 260 / 260 NS Inj 250 ML @ 42 mls/hr IV. SIG UNSCH PRN Rx#:[id number] Oral 1260 / 1260 600 / 600 Anesthesia Amount 3600 / 3600 Other 632 / 632 Output: Urine 3100 / 3100 1900 / 1900 Estimated Blood Loss 800 / 800 Stool Amount (Stoma) 100 / 100 200 / 200 Ileostomy 100 / 100 200 / 200 Wound Drainage # 1 Abdomen FAUSTO Drain Other: Date of Last Bowel Movement 04/27/18 04/28/18 # Bowel Movements 0 # Incontinent Bowel Movements 1 Narrative: GENERAL: Well-developed well-nourished. In no acute distress. NECK: No carotid bruits. No JVD. CARDIOVASCULAR: Regular rate and rhythm. No murmur appreciated. RESPIRATORY: No accessory muscle use. Clear to auscultation. Breath sounds equal bilaterally. ABDOMEN: Soft, nontender, nondistended. Ileostomy in place. MUSCULOSKELETAL: No clubbing or cyanosis. No edema. NEUROLOGICAL: Awake and alert. Normal speech. Results 04/28/18 04:20 04/28/18 04:20 Cardiac Enzymes 04/27/18 04/27/18 Range/Units 11:31 15:27 Troponin I Less than 0.02 L Less than 0.02 L (0.02-0.05) ng/mL CBC 04/28/18 Range/Units 04:20 WBC 12.9 H (4.0-11.0) th/mm3 RBC 3.27 L (4.50-5.90) mil/mm3 Hgb 9.8 L (13.0-17.0) gm/dL Hct 29.0 L (39.0-51.0) % Plt Count 248 (150-450) th/mm3 Neut # (Auto) 10.6 H (1.8-7.7) th/mm3 Lymph # (Auto) 1.0 (1.0-4.8) th/mm3 [place] # (Auto) 1.1 H (0.0-0.9) th/mm3 Eos # (Auto) 0.1 (0.0-0.4) th/mm3 Baso # (Auto) 0.0 (0.0-0.2) th/mm3 Comprehensive Metabolic Panel 04/28/18 Range/Units 04:20 Sodium 138 (136-145) meq/L Potassium 3.9 (3.5-5.1) meq/L Chloride 103 (98-107) meq/L Carbon Dioxide 28.6 (21.0-32.0) meq/L BUN 15 (7-18) mg/dL Creatinine 1.06 (0.60-1.30) mg/dL Calcium 8.2 L (8.5-10.1) mg/dL Intake and Output 04/27/18 04/28/18 04/28/18 22:59 06:59 14:59 Intake Total 1260 / 1260 5082 / 5082 360 / 360 Output Total 3210 / 3210 2910 / 2910 Balance -1950 / -1950 2172 / 2172 360 / 360 Intake: IV 250 / 250 360 / 360 Cordarone Inj 450 MG In D5W Inj 250 / 250 241 ML @ 1 MG/MIN 33.33 mls/hr IV.CONT TITRATE PRN Rx#: [id number] Cordarone Inj 150 MG In D5W Inj 100 / 100 97 ML @ 600 mls/hr IV.SIG ONCE ONE Rx#:[id number] Sodium Phosphate Inj 30 MMOL In 260 / 260 NS Inj 250 ML @ 42 mls/hr IV. SIG UNSCH PRN Rx#:[id number] Oral 1260 / 1260 600 / 600 Anesthesia Amount 3600 / 3600 Other 632 / 632 Output: Urine 3100 / 3100 1900 / 1900 Estimated Blood Loss 800 / 800 Stool Amount (Stoma) 100 / 100 200 / 200 Ileostomy 100 / 100 200 / 200 Wound Drainage # 1 Abdomen FAUSTO Drain Other: Date of Last Bowel Movement 04/27/18 04/28/18 # Bowel Movements 0 # Incontinent Bowel Movements 1 Weight 264 lb 12.403 oz Assessment and Plan - Plan 67-year-old male admitted for elective polypectomy and developed new onset A. fib Atrial fibrillation: Possibly postoperative. Converted to NSR with amiodarone GTT. Convert amiodarone to 400 mg twice daily 1 week and then 400 mg daily after that for continued rhythm control. Start diltiazem 120 mg twice daily for rate control. Discussed with colorectal surgery, john Hunt to start Eliquis for anticoagulation. Check echocardiogram. Recommend monitoring on telemetry and if heart rate is controlled tomorrow, will plan for discharge and outpatient follow-up with us in 2 weeks. Consider discontinuing amiodarone in outpatient follow-up and 30 day event monitor. Discussed Condition With: Patient seen and examined with Dr. Meek. Dr. 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, managed as type 1 Hypertension Insulin pump in place Sleep apnea with use of continuous positive airway pressure (CPAP) Wears dentures Wears glasses - Surgical History Surgical History: Surgical History (Last Reviewed 04/24/18 @ 12:29 by Katelin Matt RN) History of partial colectomy History of sinus surgery Hx of eye surgery Medications and Allergies Active Medications: Active Medications Acetaminophen (Tylenol Liq) 650 mg PO Q6H PRN PRN Reason: FEVER Hydrocodone Bitart/Acetaminophen ([place] 5/325) 2 tab PO Q4H PRN PRN Reason: PAIN SCALE 5 TO 10 Last Admin: 04/26/18 23:44 Dose: 2 tab Hydrocodone Bitart/Acetaminophen ([place] 5/325) 1 tab PO Q4H PRN PRN Reason: PAIN SCALE 1 TO 4 Last Admin: 04/26/18 17:26 Dose: 1 tab Alvimopan (Entereg) 12 mg PO BID [facility] Stop: 05/01/18 21:01 Last Admin: 04/28/18 21:43 Dose: 12 mg Amiodarone HCl (Cordarone) 400 mg PO Q12HR [facility] Last Admin: 04/28/18 21:43 Dose: 400 mg Apixaban (Eliquis) 5 mg PO BID [facility] Last Admin: 04/28/18 21:43 Dose: 5 mg Atropine Sulfate (Isopto Atropine 1% Opth Drops) 1 drops RIGHT EYE DAILY [facility] Last Admin: 04/28/18 10:43 Dose: 1 drops Benzocaine/Menthol (Chloraseptic Sore Throat Lozenge) 1 lozenge BUCCAL PRN PRN PRN Reason: SORE THROAT Dextrose (D50w Vial) 50 ml IV.PUSH UNSCH PRN PRN Reason: PER HYPOGLYCEMIA PROTOCOL Diltiazem HCl (Cardizem Cd 24hr) 180 mg PO BID [facility] Glucagon (Glucagon Inj) 1 mg OTHER PRN PRN PRN Reason: for Hypoglycemia Protocol Hydrochlorothiazide (Hydrodiuril) 25 mg PO DAILY [facility] Last Admin: 04/28/18 10:42 Dose: 25 mg Magnesium Sulfate Inj 4 gm/ (Sodium Chloride) 100 mls @ 50 mls/hr IV.SIG UNSCH PRN PRN Reason: For Magnesium 0.9 - 1.1 mg/dL Magnesium Sulfate Inj 2 gm/ (Sodium Chloride) 100 mls @ 50 mls/hr IV.SIG UNSCH PRN PRN Reason: For Magnesium 1.2 - 1.6 mg/dL Potassium Chloride (Kcl 40 Meq Premix Inj) 40 meq in 100 mls @ 50 mls/hr IV.SIG Q2H PRN PRN Reason: For Potassium 2.8 - 3.2 mEq/L Potassium Chloride (Kcl 40 Meq Premix Inj) 40 meq in 100 mls @ 25 mls/hr IV.SIG UNSCH PRN PRN Reason: For Potassium 3.3 - 3.5 mEq/L Potassium Chloride (Kcl 20 Meq Premix Inj) 20 meq in 100 mls @ 50 mls/hr IV.SIG Q2H PRN PRN Reason: For Potassium 2.8 - 3.2 mEq/L Potassium Phosphate 30 mmol/ (Sodium Chloride) 260 mls @ 42 mls/hr IV.SIG UNSCH PRN PRN Reason: SEE LABEL COMMENTS Sodium Phosphate 30 mmol/ (Sodium Chloride) 260 mls @ 42 mls/hr IV.SIG UNSCH PRN PRN Reason: For Phosphorus < 2.5 mg/dL Last Infusion: 04/28/18 08:14 Dose: Infused Potassium Chloride (Kcl 20 Meq Premix Inj) 20 meq in 100 mls @ 50 mls/hr IV.SIG Q2H PRN PRN Reason: For Potassium 3.3 - 3.5 mEq/L Lisinopril (Prinivil) 20 mg PO BID [facility] Last Admin: 04/28/18 21:43 Dose: 20 mg Metformin HCl (Glucophage) 1,000 mg PO BID [facility] Last Admin: 04/28/18 21:43 Dose: 1,000 mg Metoclopramide HCl (Reglan Inj) 10 mg IV.PUSH Q6HR PRN; Protocol PRN Reason: NAUSEA Last Admin: 04/26/18 23:45 Dose: 10 mg Miscellaneous (Pill Splitter) 1 each OTHER UNSCH PRN PRN Reason: PILL SPLITTING Naloxone HCl (Narcan Inj) 0.4 mg IV.PUSH PRN PRN PRN Reason: Resp rate < 10 Ondansetron HCl (Zofran Odt) 4 mg PO Q6H PRN PRN Reason: NAUSEA OR VOMITING Last Admin: 04/26/18 16:36 Dose: 4 mg Pantoprazole Sodium (Protonix Inj) 40 mg IV.PUSH DAILY [facility] Last Admin: 04/28/18 09:18 Dose: 40 mg Potassium Bicarb/Potassium Chloride (K-Lyte Cl Eff) 50 meq PO UNSCH PRN PRN Reason: For Potassium 3.3 - 3.5 mEq/L Potassium Phosphate (K-Phos Original) 2,000 mg PO Q4H PRN PRN Reason: Phosphorus Less Than 2.5 mg/dL Potassium Phosphate (K-Phos Original) 2,000 mg PO UNSCH PRN PRN Reason: SEE LABEL COMMENTS Sodium Chloride (Ns Flush) 2 ml IV.FLUSH PRN PRN PRN Reason: FLUSH AFTER USING IV ACCESS Sodium Chloride (Ns Flush) 2 ml IV.FLUSH BID [facility] Last Admin: 04/28/18 21:43 Dose: 2 ml Zolpidem Tartrate (Ambien) 5 mg PO HS PRN PRN Reason: INSOMNIA Exam Vital signs: Vital Signs 04/28/18 12:00 04/28/18 12:58 04/28/18 16:00 Temperature 98.5 F 98.4 F Pulse Rate 100 H 87 Respiratory Rate 28 H 18 Blood Pressure 147/69 H 153/67 H Pulse Oximetry 100 96 04/28/18 17:06 04/28/18 20:00 04/28/18 22:00 Temperature 98.5 F Pulse Rate 98 H 96 H Respiratory Rate 17 Blood Pressure 167/72 H Pulse Oximetry 97 97 04/29/18 00:00 04/29/18 02:00 04/29/18 04:00 Temperature 98.6 F 98.1 F Pulse Rate 100 H 98 H 90 Respiratory Rate 16 18 Blood Pressure 167/72 H 156/70 H Pulse Oximetry 100 93 L 04/29/18 06:00 Temperature Pulse Rate 102 H Respiratory Rate Blood Pressure Pulse Oximetry Intake & Output 04/28/18 04/29/18 04/29/18 18:59 06:59 18:59 Intake Total 1160 / 1160 Output Total 1999 / 1999 1400 / 1400 Balance -840 / -840 -1400 / -1400 Weight 120.1 kg Intake: IV 710 / 710 Cordarone Inj 450 MG In D5W Inj 150 / 150 241 ML @ 1 MG/MIN 33.33 mls/hr IV.CONT TITRATE PRN Rx#: [id number] Cordarone Inj 150 MG In D5W Inj 100 / 100 97 ML @ 600 mls/hr IV.SIG ONCE ONE Rx#:[id number] Magnesium Sulfate 1 gm/D5W 100 200 / 200 ml Premix 100 ML @ 100 mls/hr IV.SIG Q1H [facility] Rx#:[id number] Sodium Phosphate Inj 30 MMOL In 260 / 260 NS Inj 250 ML @ 42 mls/hr IV. SIG UNSCH PRN Rx#:[id number] Oral 450 / 450 Output: Urine 1800 / 1800 1100 / 1100 Stool Amount (Stoma) 200 / 200 300 / 300 Ileostomy 200 / 200 300 / 300 Other: Date of Last Bowel Movement 04/28/18 04/28/18 Results 04/29/18 03:26 04/29/18 03:26 Cardiac Enzymes 04/28/18 04/29/18 Range/Units 12:10 03:26 AST 19 (15-37) U/L Troponin I Less than 0.02 L Less than 0.02 L (0.02-0.05) ng/mL CBC 04/29/18 Range/Units 03:26 WBC 12.5 H (4.0-11.0) th/mm3 RBC 3.70 L (4.50-5.90) mil/mm3 Hgb 11.0 L (13.0-17.0) gm/dL Hct 33.1 L (39.0-51.0) % Plt Count 283 (150-450) th/mm3 Neut # (Auto) 10.0 H (1.8-7.7) th/mm3 Lymph # (Auto) 1.0 (1.0-4.8) th/mm3 [place] # (Auto) 1.3 H (0.0-0.9) th/mm3 Eos # (Auto) 0.2 (0.0-0.4) th/mm3 Baso # (Auto) 0.0 (0.0-0.2) th/mm3 Comprehensive Metabolic Panel 04/28/18 04/29/18 Range/Units 12:10 03:26 Sodium 135 L 135 L (136-145) meq/L Potassium 4.3 4.3 (3.5-5.1) meq/L Chloride 101 101 (98-107) meq/L Carbon Dioxide 23.6 25.6 (21.0-32.0) meq/L BUN 16 14 (7-18) mg/dL Creatinine 1.16 1.05 (0.60-1.30) mg/dL Calcium 8.7 8.4 L (8.5-10.1) mg/dL AST 19 (15-37) U/L ALT 23 (12-78) U/L Alkaline Phosphatase 68 (45-117) U/L Total Protein 6.2 L (6.4-8.2) g/dL Albumin 2.8 L (3.4-5.0) g/dL Intake and Output 04/28/18 04/29/18 04/29/18 22:59 06:59 14:59 Intake Total 450 / 450 Output Total 1999 1400 / 1400 Balance -1550 / -1550 -1400 / -1400 Intake: Oral 450 / 450 Output: Urine 1800 / 1800 1100 / 1100 Stool Amount (Stoma) 200 / 200 300 / 300 Ileostomy 200 / 200 300 / 300 Other: Date of Last Bowel Movement 04/28/18 04/28/18 Weight 120.1 kg Assessment and Plan - Plan Patient seen and examined. Agree with above. Post-operative Atrial fibrillation, currently in NSR Will continue Amiodarone 400mg bid x 1 week then stop. No need for Eliquis at this time, however appropriate to know that he is cleared by surgeon for chronic anticoagulation therapy if recurrence of atrial fibrillation. Start diltiazem 120mg bid. reduce HCTZ to 25mg daily. If BP remains elevated, will consider addition of spironolactone.
--- NOTE | 2018-04-28 09:13 | XR ---
EXAM DATE: 04/28/2018 8:48 AM EDT AGE/SEX: 67 years / Male INDICATIONS: Shortness of breath. CLINICAL DATA: This is the patient's subsequent encounter. Patient reports that signs and symptoms h ave been present for 4 - 6 days and indicates a pain score of 0/10. MEDICAL/SURGICAL HISTORY: Diabetes. Hypertension. None. COMPARISON: [facility] – [place], CHEST 2V PA&LAT, 04/17/2018. . FINDINGS: There is subsegmental atelectasis suspected in the right midlung. Heart size normal. Lungs are otherw ise clear. Osseous structures are intact. Right fourth and fifth posterior rib fractures are again se en. CONCLUSION: Minimal atelectasis right lung base. Electronically signed by: Leon Sanchez MD 04/28/2018 9:12 AM EDT
[2018-04-28] MEDS: Pantoprazole Inj 40 MG Vial IV.PUSH SCH (09:18)
[2018-04-28] MEDS: Lisinopril 20 MG Tablet PO SCH ×2 (09:18→21:43)
--- NOTE | 2018-04-28 09:20 | P.PNCS ---
Subjective Interval history: No N or V. Ileostomy functioning. Appreciate critical care and cardiology. NSR at present. OK to start anticoagulation. Objective Result Diagrams: 04/28/18 04:20 04/28/18 04:20 Objective Remarks: VS-S Abd: soft,wound clean. No redness. Drain serous removed by me. Ileostomy functioning. I&Os-OK Labs-OK Assessment and Plan - Plan Discussed with VALERIE Joe. Possible D/C tomorrow if cardiac stable. OK for anticoagulation. Pt sold home and having difficulty with post op plans. May need skilled or at least assisted living post op. Needs Ileostomy teaching and supplies.
[2018-04-28] MEDS: Amiodarone 200 MG Tablet PO SCH ×2 (10:42→21:43)
[2018-04-28] MEDS: hydroCHLOROthiazide 25 MG Tablet PO SCH (10:42)
[2018-04-28] MEDS: Mag Sulf 1 gm/100 ml Premix 100 ML IV.SIG SCH ×2 (10:42→12:03)
[2018-04-28] MEDS: Atropine 1% Opth Drops 2 ML Bottle RIGHT EYE SCH (10:43)
[2018-04-28] MEDS: dilTIAZem CD 120 MG Capsule PO SCH ×2 (10:43→21:42)
--- NOTE | 2018-04-28 12:24 | ECG ---
Date Performed: 04/27/2018 Time Performed: 03:19:24 PTAGE: 67 years EKG: Atrial fibrillation with uncontrolled ventricular response with non-sustained ventricular t achycardia. Left axis deviation Ant/septal and lateral ST-T changes are nonspecific Prolonged QTC Abn ormal ECG NO PREVIOUS TRACING DOCTOR: Joseph Ashley Interpretating Date/Time 04/28/2018 12:23:35
--- NOTE | 2018-04-28 16:31 | P.PNWCN ---
Wound Care Nurse Consult Description: Consult for New Ostomy Teaching of RUQ ILEOSTOMY per Dr Salinas. Communicated with: Patient PINA Bañuelos Recommendation: Assess stoma for color, moisture, and output. Empty pouch of effluent when 1/3-1/2 full. Change pouching system (2 1/4") every 3-5 days and PRN for leaks. Additional information: Patient seen on for ostomy assessment and teaching with appliance change using 2 3/4" moldable wafer and open ended transparent pouch. Bowel Diversion Stoma - Bowel Stoma Ileostomy Stoma Appearance: Protruding, Round (red, moist, functioning) Collection Device: Two-piece, Moldable Wafer Drainage Description: Soft, Liquid, Green (with a white round hard object found in pouch that appears to be a pill) Wafer Size: 2 3/4" moldable Stoma Care: Pouch and Wafer Changed, Skin Care Shanelle-Stomal Skin Appearance: Intact Shanelle-Stomal Surrounding Tissue Sensation Description: No Symptoms - Additional Information Additional Information: Ileostomy noted on right side abdomen was visualized and noted to be functioning with green effluent in pouch that was pulling away from patient and emptied 200ml of green effluent with what appears to be a pill in the pouch that was shown to patient and RN. Teaching was done regarding the ostomy function and appearance, pouching options, food and medication, dehydration. Wafer was removed from patient, skin assessment/care was completed with education. New wafer and pouch were placed with demonstration. Educational material is at bedside for reinforcement of teaching. Patient gave verbal consent for starter kit to be sent out. Patient will be followed up with tomorrow.
--- NOTE | 2018-04-28 20:42 | ECHRPT ---
Indication: a fib flutter CONCLUSIONS Technically very difficult study making assessment of left ventricular function and wall motion subo ptimal. Upper normal left ventricular size with probably normal wall thickness. Grossly left ventricular fu nction appears to be normal. Regional wall motion abnormalities cannot be excluded on the basis of this s tudy. Mild mitral annular calcification is present. The aortic valve is not well visualized. There is trace tricuspid valve regurgitation. The estimated pulmonary arterial pressure is 20 mmHg. BP: / HR: Rhythm: Technical Quality: FINDINGS LEFT VENTRICLE Technically very difficult study making assessment of left ventricular function and wall motion subo ptimal. Upper normal left ventricular size with probably normal wall thickness. Grossly left ventricular fu nction appears to be normal. Regional wall motion abnormalities cannot be excluded on the basis of this s tudy. RIGHT VENTRICLE Normal right ventricular size and systolic function. LEFT ATRIUM The left atrial size is normal. RIGHT ATRIUM The right atrial size is normal. ATRIAL SEPTUM Normal atrial septal thickness without atrial level shunting by limited color doppler interrogation. AORTA The aortic root and proximal ascending aorta are normal in size on limited imaging. MITRAL VALVE Mild mitral annular calcification is present. AORTIC VALVE The aortic valve is not well visualized. TRICUSPID VALVE There is trace tricuspid valve regurgitation. The estimated pulmonary arterial pressure is 20 mmHg. PULMONARY VALVE The pulmonary valve is not well visualized. VESSELS The inferior vena cava is normal in size. PERICARDIUM No pericardial effusion. Johann Smalls MD (Electronically Signed) Final Date:28 April 2018 20:41
--- NOTE | 2018-04-28 21:45 | ECG ---
Date Performed: 04/28/2018 Time Performed: 08:28:16 PTAGE: 67 years EKG: Sinus rhythm MARKED LEFT AXIS DEVIATION PATTERN CONSISTENT WITH PULMONARY DISEASE ABNORMAL ECG PREVIOUS TRACING : 04/27/2018 03.19 Compared to previous tracing, afib with RVR is no longer p resent DOCTOR: Melecio Gaspar Interpretating Date/Time 04/28/2018 21:44:32
[2018-04-28 22:02] LABS: Calcium 8.7 mg/dL (8.5-10.1); Carbon Dioxide 23.6 meq/L (21.0-32.0); Potassium 4.3 meq/L (3.5-5.1)
[2018-04-29 04:10] LABS: Baso % (Auto) 0.2 % (0.0-2.0); Eos # (Auto) 0.2 th/mm3 (0.0-0.4); Eos % (Auto) 1.6 % (0.0-4.0); Hematocrit 33.1 % (39.0-51.0); Lymph % (Auto) 7.8 % (9.0-44.0); Mean Corpuscular HGB Conc 33.3 % (32.0-36.0); Mean Corpuscular Hemoglobin 29.8 pg (27.0-34.0); Mean Corpuscular Volume 89.6 fL (80.0-100.0); Mean Platelet Volume 8.2 fL (7.0-11.0); Mono # (Auto) 1.3 th/mm3 (0.0-0.9); Mono % (Auto) 10.2 % (0.0-8.0); Neut % (Auto) 80.2 % (16.0-70.0); Platelet Count 283 th/mm3 (150-450); Red Cell Distribution Width 13.8 % (11.6-17.2); White Blood Count 12.5 th/mm3 (4.0-11.0)
[2018-04-29 04:29] LABS: Albumin 2.8 g/dL (3.4-5.0); Anion Gap 8 meq/L (5-15); Blood Urea Nitrogen 14 mg/dL (7-18); Calcium 8.4 mg/dL (8.5-10.1); Carbon Dioxide 25.6 meq/L (21.0-32.0); Chloride 101 meq/L (98-107); Glomerular Filtration Rate 71 mL/min (>89); Glucose,Random 181 mg/dL (74-106); Magnesium 1.9 mg/dL (1.5-2.5); Potassium 4.3 meq/L (3.5-5.1); Sodium 135 meq/L (136-145)
[2018-04-29 04:31] LABS: Aspartate Aminotransferase 19 U/L (15-37)
[2018-04-29 04:45] LABS: Alanine Aminotransferase 23 U/L (12-78); Alkaline Phosphatase 68 U/L (45-117); Digoxin 1.4 ng/mL (0.8-2.0); Phosphorus 2.5 mg/dL (2.5-4.9); Total Protein 6.2 g/dL (6.4-8.2)
--- NOTE | 2018-04-29 08:16 | P.PNCA ---
<Saul Fonseca - Last Filed: 04/29/18 08:25> Subjective Interval history: Telemetry shows NSR, no arrhythmias noted since previous eval. Patient denies any chest pain, shortness breath, palpitations. Physical Exam Vital signs: Vital Signs 04/28/18 12:00 04/28/18 12:58 04/28/18 16:00 Temperature 98.5 F 98.4 F Pulse Rate 100 H 87 Respiratory Rate 28 H 18 Blood Pressure 147/69 H 153/67 H Pulse Oximetry 100 96 04/28/18 17:06 04/28/18 20:00 04/28/18 22:00 Temperature 98.5 F Pulse Rate 98 H 96 H Respiratory Rate 17 Blood Pressure 167/72 H Pulse Oximetry 97 97 04/29/18 00:00 04/29/18 02:00 04/29/18 04:00 Temperature 98.6 F 98.1 F Pulse Rate 100 H 98 H 90 Respiratory Rate 16 18 Blood Pressure 167/72 H 156/70 H Pulse Oximetry 100 93 L 04/29/18 06:00 Temperature Pulse Rate 102 H Respiratory Rate Blood Pressure Pulse Oximetry Intake & Output 04/28/18 04/29/18 04/29/18 18:59 06:59 18:59 Intake Total 1160 / 1160 Output Total 1999 / 1999 1400 / 1400 Balance -840 / -840 -1400 / -1400 Weight 264 lb 12.403 oz Intake: IV 710 / 710 Cordarone Inj 450 MG In D5W Inj 150 / 150 241 ML @ 1 MG/MIN 33.33 mls/hr IV.CONT TITRATE PRN Rx#: [id number] Cordarone Inj 150 MG In D5W Inj 100 / 100 97 ML @ 600 mls/hr IV.SIG ONCE ONE Rx#:[id number] Magnesium Sulfate 1 gm/D5W 100 200 / 200 ml Premix 100 ML @ 100 mls/hr IV.SIG Q1H GAYLE Rx#:[id number] Sodium Phosphate Inj 30 MMOL In 260 / 260 NS Inj 250 ML @ 42 mls/hr IV. SIG UNSCH PRN Rx#:[id number] Oral 450 / 450 Output: Urine 1800 / 1800 1100 / 1100 Stool Amount (Stoma) 200 / 200 300 / 300 Ileostomy 200 / 200 300 / 300 Other: Date of Last Bowel Movement 04/28/18 04/28/18 Narrative: GENERAL: Well-developed well-nourished. In no acute distress. Right eye blindness. NECK: No carotid bruits. No JVD. CARDIOVASCULAR: Regular rate and rhythm. No murmur appreciated. RESPIRATORY: No accessory muscle use. Clear to auscultation. Breath sounds equal bilaterally. MUSCULOSKELETAL: No clubbing or cyanosis. No edema. NEUROLOGICAL: Awake and alert. Normal speech. - Urinary Catheter Management Indwelling Urethral Catheter Cath placed during this visit: yes Reason for continuing: Hourly intake/output Insertion date: 04/24/18 Insertion time: 15:35 Assessment and Plan - Plan 67-year-old male admitted for elective polypectomy and developed new onset A. fib Atrial fibrillation: Possibly postoperative. Converted to NSR with amiodarone GTT. Converted amiodarone to 400 mg twice daily 1 week and then 400 mg daily after that for continued rhythm control. Heart rate remains 90s, increase diltiazem to 180 mg twice daily for rate control. Ok for anticoag per CRS, started Eliquis. Echocardiogram unremarkable. Remains in NSR, okay for discharge from cardiology perspective. Outpatient follow-up with us in 2 weeks. At outpatient follow-up, will consider discontinuing amiodarone and checking 30 day event monitor. Discussed Condition With: Patient, Dr. Meek <Brody Meek - Last Filed: 04/29/18 08:47> Physical Exam Vital signs: Vital Signs 04/28/18 12:00 04/28/18 12:58 04/28/18 16:00 Temperature 98.5 F 98.4 F Pulse Rate 100 H 87 Respiratory Rate 28 H 18 Blood Pressure 147/69 H 153/67 H Pulse Oximetry 100 96 04/28/18 17:06 04/28/18 20:00 04/28/18 22:00 Temperature 98.5 F Pulse Rate 98 H 96 H Respiratory Rate 17 Blood Pressure 167/72 H Pulse Oximetry 97 97 04/29/18 00:00 04/29/18 02:00 04/29/18 04:00 Temperature 98.6 F 98.1 F Pulse Rate 100 H 98 H 90 Respiratory Rate 16 18 Blood Pressure 167/72 H 156/70 H Pulse Oximetry 100 93 L 04/29/18 06:00 Temperature Pulse Rate 102 H Respiratory Rate Blood Pressure Pulse Oximetry Intake & Output 04/28/18 04/29/1818 18:59 06:59 18:59 Intake Total 1160 / 1160 Output Total 1999 1400 / 1400 Balance -840 / -840 -1400 / -1400 Weight 120.1 kg Intake: IV 710 / 710 Cordarone Inj 450 MG In D5W Inj 150 / 150 241 ML @ 1 MG/MIN 33.33 mls/hr IV.CONT TITRATE PRN Rx#: [id number] Cordarone Inj 150 MG In D5W Inj 100 / 100 97 ML @ 600 mls/hr IV.SIG ONCE ONE Rx#:[id number] Magnesium Sulfate 1 gm/D5W 100 200 / 200 ml Premix 100 ML @ 100 mls/hr IV.SIG Q1H GAYLE Rx#:[id number] Sodium Phosphate Inj 30 MMOL In 260 / 260 NS Inj 250 ML @ 42 mls/hr IV. SIG UNSCH PRN Rx#:[id number] Oral 450 / 450 Output: Urine 1800 / 1800 1100 / 1100 Stool Amount (Stoma) 200 / 200 300 / 300 Ileostomy 200 / 200 300 / 300 Other: Date of Last Bowel Movement 04/28/18 04/28/18 - Urinary Catheter Management Indwelling Urethral Catheter Cath placed during this visit: no Assessment and Plan - Plan Agree with above. Patient seen and examined. Post-operative Atrial fibrillation, currently NSR/ST on amiodarone HTN, uncontrolled s/p rectosigmoidectomy and diverting ileostomy with JAZMYNE, 04/24/18 Morbid obesity Rec: increase diltiazem to 180mg bid start spironolactone 25mg daily continue HCTZ 25mg daily continue amiodarone 400mg daily x 1 week then stop f/u in 2 weeks as outpatient with our group BMP prior to follow up with our group to assess renal function/electrolytes on spironolactone will sign off for now
[2018-04-29] MEDS ORDERED: Spironolactone 25 MG Tablet PO SCH (09:00)
[2018-04-29] MEDS ORDERED: Digoxin 125 MCG Tablet PO SCH (09:00)
[2018-04-29] MEDS ORDERED: dilTIAZem CD 180 MG Capsule PO SCH (09:00)
[2018-04-29] MEDS: Amiodarone 200 MG Tablet PO SCH (09:28)
[2018-04-29] MEDS: hydroCHLOROthiazide 25 MG Tablet PO SCH (09:28)
[2018-04-29] MEDS: Pantoprazole Inj 40 MG Vial IV.PUSH SCH (09:28)
[2018-04-29] MEDS: Lisinopril 20 MG Tablet PO SCH (09:28)
[2018-04-29] MEDS: Atropine 1% Opth Drops 2 ML Bottle RIGHT EYE SCH (09:29)
--- NOTE | 2018-04-29 10:20 | P.PNCC ---
Subjective Subjective Remarks/Hospital Course: 67-year-old very pleasant gentleman with past medical history of diabetes mellitus, hypertension underwent elective redo low anterior resection for colonic polyp. Postoperatively patient was admitted to ICU for insulin drip due to uncontrolled hyperglycemia that has been improved. Early in the morning today 04/27 patient has developed a rapid A. fib with RVR with paroxysmal nonsustained runs of V. tach. The patient denies chest pain, shortness of breath, nausea or vomiting or any other associated symptoms. SUBJECTIVE: 04/28: Patient developed atrial fibrillation with rapid ventricular response overnight with a heart rate in the 170s1.5 g. Received 5 mg metoprolol tartrate IV 3 along with an amiodarone bolus. Currently rate controlled on amiodarone drip at 0.5 mg/min. Will check troponins - < 0.02, TSH - 0474 the same. Replace potassium and magnesium.. Routine echocardiogram. Cardiology consultation. Received stress test prior to surgery. His senior [facility] d[facility] is in [place] according to patient. No privileges here at [place].. Denies chest pain or shortness of breath. 04/29: Patient is sitting up in a chair heart rate controlled now and in sinus rhythm, intermittently tachycardic. Blood pressure stable. Off amiodarone drip since yesterday Objective Vital Signs / I&O: Vital Signs 04/28/18 12:00 04/28/18 12:58 04/28/18 16:00 Temperature 98.5 F 98.4 F Pulse Rate 100 H 87 Respiratory Rate 28 H 18 Blood Pressure 147/69 H 153/67 H Pulse Oximetry 100 96 04/28/18 17:06 04/28/18 20:00 04/28/18 22:00 Temperature 98.5 F Pulse Rate 98 H 96 H Respiratory Rate 17 Blood Pressure 167/72 H Pulse Oximetry 97 97 04/29/18 00:00 04/29/18 02:00 04/29/18 04:00 Temperature 98.6 F 98.1 F Pulse Rate 100 H 98 H 90 Respiratory Rate 16 18 Blood Pressure 167/72 H 156/70 H Pulse Oximetry 100 93 L 04/29/18 06:00 04/29/18 08:00 Temperature 99.0 F Pulse Rate 102 H 109 H Respiratory Rate 19 Blood Pressure 167/94 H Pulse Oximetry 98 Intake & Output 04/28/18 04/29/18 04/29/18 18:59 06:59 18:59 Intake Total 1160 / 1160 Output Total 1999 1400 / 1400 Balance -840 / -840 -1400 / -1400 Weight 120.1 kg Intake: IV 710 / 710 Cordarone Inj 450 MG In D5W Inj 150 / 150 241 ML @ 1 MG/MIN 33.33 mls/hr IV.CONT TITRATE PRN Rx#: [id number] Cordarone Inj 150 MG In D5W Inj 100 / 100 97 ML @ 600 mls/hr IV.SIG ONCE ONE Rx#:[id number] Magnesium Sulfate 1 gm/D5W 100 200 / 200 ml Premix 100 ML @ 100 mls/hr IV.SIG Q1H GAYLE Rx#:[id number] Sodium Phosphate Inj 30 MMOL In 260 / 260 NS Inj 250 ML @ 42 mls/hr IV. SIG UNSCH PRN Rx#:[id number] Oral 450 / 450 Output: Urine 1800 / 1800 1100 / 1100 Stool Amount (Stoma) 200 / 200 300 / 300 Ileostomy 200 / 200 300 / 300 Other: Date of Last Bowel Movement 04/28/18 04/28/18 04/28/18 Result Diagrams: 04/29/18 03:26 04/29/18 03:26 Objective Remarks: GENERAL: 67-year-old male currently sitting up in chair SKIN: Warm and dry. HEAD: Atraumatic. Normocephalic. EYES: Right eye opacity ENT: No nasal bleeding or discharge. Mucous membranes pink and moist. NECK: Trachea midline. No JVD. CARDIOVASCULAR: Sinus tachycardia S1, S2 no S 4. No murmur RESPIRATORY: No accessory muscle use. Clear to auscultation. Breath sounds equal bilaterally. GASTROINTESTINAL: Abdomen somewhat protuberant. Ostomy in right lower quadrant pink with stool. FAUSTO tube with yellowish drainage MUSCULOSKELETAL: Extremities with trace bilateral lower extremity edema. No obvious deformities. NEUROLOGICAL: Awake and alert. No obvious cranial nerve deficits. Motor grossly within normal limits. Five out of 5 muscle strength in the arms and legs. Assessment and Plan - Assessment and Plan Plan: Neuro/Psych: Uveitis Acetaminophen 650 mg by mouth every 6 hours as needed fever Hydrocodone/acetaminophen 5/325 1 to tabs every 4 hours as needed pain Atropine drops 1% 1 drop right eye each night Zolpidem 5 mg at night as needed insomnia CV: Essential hypertension Atrial fibrillation with rapid ventricular response-resolved Off amiodarone drip since a.m. Continue amiodarone 400 mg PO twice daily, Cardizem 180 mg PO twice daily Appreciate cardiology input. Digoxin discontinued TSH 0.474. Initial troponin is negative. Repeat pending on EKG and 2D echocardiogram Receiving 2 mg magnesium sulfate IV and 30 oral milliequivalents potassium chloride. Continue lisinopril 20 mg by mouth twice daily for essential hypertension. Aldactone added by cardiology On hydrochlorothiazide 50 mg daily at home Resp: Nasal cannula to maintain saturations greater than equal to 92% Incentive spirometry while awake As needed albuterol aerosols as needed for dyspnea Follow-up on chest x-ray GI: S/P Redo LAR for colon polyp by Dr. Salinas 04/25 Diabetic diet per GI surgery Pantoprazole for GI prophylaxis Alvimopan per colorectal surgery -Further management per surgeon with Entereg 12 mg twice daily/prokinetic : Status post bilateral Schroeder catheter insertion by urology. Removed Endo: IDDM Insulin pump with aspart U 100 per patient. Patient is managing with pump and left lower quadrant Metformin 1000 mg twice daily Maintain euglycemia for healing Renal: Acute kidney injury resolving Status post furosemide 20 mg IV twice daily 6 dosages completed Creatinine currently 1.01. Recheck in a.m. Monitor urine output with accurate I's and O's Heme: Leukocytosis Normocytic anemia Monitor CBC daily. Follow trends. No indication for transfusion of blood products at this time. ID: Monitor for signs and symptomatology of infection FEN: Replace electrolytes as clinically indicated. Goal keep magnesium greater than 2.0. Potassium greater than 4.0. Receiving electrolytes as above per cardiology section MSK: Physical therapy evaluate and treat Access -Utilize peripheral IV. Central line if indicated Prophylaxis -GI -pantoprazole -DVT -SCD/pharmacological prophylaxis when okay with colorectal surgery Level 2 Transfer to [facility] surge to Tele. Defer to Dr. Deutsch any discharge decisions. [facility] will sign off. Re consult if needed
--- NOTE | 2018-04-29 12:17 | P.PNWCN ---
Wound Care Nurse Consult Description: Consult for New Ostomy Teaching of RUQ ILEOSTOMY per Dr Salinas. Communicated with: Patient PINA Bañuelos Recommendation: Assess stoma for color, moisture, and output. Empty pouch of effluent when 1/3-1/2 full. Change pouching system (2 1/4") every 3-5 days and PRN for leaks. Additional information: Patient seen today on [facility] for ostomy assessment, teaching, and reinforcement of previous education given. Incision - Incision Midline Abdomen Other Cover Dressing: primipore Bowel Diversion Stoma - Bowel Stoma Ileostomy Stoma Appearance: Protruding, Round Collection Device: Two-piece, Moldable Wafer Drainage Description: Soft, Liquid, Green Wafer Size: 2 3/4" moldable Shanelle-Stomal Skin Appearance: Intact - Additional Information Additional Information: Ileostomy noted on right side abdomen was visualized and noted to be functioning with green effluent in pouch that was half full and emptied 200ml of green effluent. Teaching was done regarding the ostomy function and appearance, pouching options, food and medication, dehydration. Demonstration of attaching wafer and pouch to practice stoma completed with return demonstration by patient. Educational material is at bedside for reinforcement of teaching. Starter kit sent out today to be delivered to patient home on . Supplies ordered for patient to go home with at discharge.
--- NOTE | 2018-04-29 13:50 | P.DCO ---
- Home Health Nursing Order: Medical education, Signs/symptoms of disease process, Diabetic education , Medication education-adverse effect, Wound care and dressing changes Instructions: Ileostomy supplies and teaching - Case Management Consult Yes - Certification I have seen patient Kyle Anton on 04/29/18. My clinical findings support the need for the requested home health care services because: New Ileostomy and post op wound care and teaching Limited mobility due to disease progression, Deconditioned with increased weakness, Limited ability to care for self, High risk of falls I certify that my clinical findings support that this patient is homebound because:New Ileostomy and abdominal surgery Post-op weakness, Unsteady gait/balance, Unsafe to leave home unassisted, Need for psychosocial assistance, Unable to use public transportation (Remove skin ray 05/05/2018)
--- NOTE | 2018-05-22 16:52 | MD ---
cc: Vitaliy Salinas MD, John T MD DATE OF DISCHARGE: 04/29/2018 DATE OF ADMISSION: 04/24/2018 DATE OF DISCHARGE: 04/29/2018 ADMITTING DIAGNOSES: 1. Recurrent rectal polyp at colorectal anastomosis. 2. Large lower abdominal ventral hernia. POSTOPERATIVE DIAGNOSES: 1. Recurrent villous polyp. 2. Colorectal anastomosis. 3. Large inferior ventral hernia. OPERATIVE PROCEDURE: 1. Extensive lysis of adhesions. 2. Rectosigmoidectomy, low anterior resection diverting loop ileostomy. 3. Repair of enterotomy. 4. Ventral hernia repair. HISTORY OF PRESENT ILLNESS: This patient was referred to me with a recurrent large villous lesion circumferentially around his colorectal anastomosis. He had his first surgery in [address] Barron Hendrickson in [place]. At that time it was quite a difficult operation. It was started cholecystectomy and then opened and a 2000 mL of blood were lost and the patient was quite ill postoperatively in the intensive care unit, but recovered. At that time, they felt that they resected this whole villous lesion and a colorectal anastomosis was done. The patient developed extensive wound infection and a lower abdominal ventral hernia, which was repaired by Dr. Otto, who did repair the ventral hernia with DualMesh intraabdominally. Since that time the patient's ventral hernia seems to have recurred in the lower abdomen and the patient recurred this villous lesion circumferentially around his anastomosis. Also, the patient was found to have a heavy gauge Prolene suture that was visible on endoscopy in and around the anastomosis. 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 HOSPITAL COURSE: The patient was admitted to the hospital on 04/24/2018 and underwent resection. On the first postoperative day he was started on clear liquid diet. His blood sugars went extremely high postoperatively and therefore he was started on an insulin drip, but had to be transferred to the intensive surgical care unit. He continued to do well and his diet was advanced to a full liquid diet and his stoma began working well. On 04/27/2018, the patient developed rapid atrial fibrillation with RVR proximal nonsustained runs of V-tach. The patient denied any chest pain at that time and critical care medicine was asked to see the patient. He improved with the medications and heart rate was eventually controlled. The patient generally improved, he had no nausea or vomiting, his ileostomy is functioning well and he returned to normal sinus rhythm. The patient was started on anticoagulation. His wound remained clean. His drains were removed and he was discharged from the hospital on 04/29/2018. He is instructed to do no driving for 2 weeks, do no heavy lifting for 6 weeks, and to call me with any problems. He is instructed to follow up with me in the office in 2 weeks' time. MD IDALIA Jean-Baptiste/joe , 02:08 PM , 02:16 PM
== END 2018-04-29 15:37 | disposition home or self-care (01) ==
LOC: HSDI 11:19 → HCPC 19:34 → N03 04-25 08:28
PROVIDERS: ADMIT Colon & Rectal Surgery; ATTEND Colon & Rectal Surgery
DX: E66.01 Morbid (severe) obesity due to excess calories; Z87.891 Personal history of nicotine dependence; D64.9 Anemia, unspecified; Z96.41 Presence of insulin pump (external) (internal); H54.7 Unspecified visual loss; Z79.4 Long term (current) use of insulin; D72.829 Elevated white blood cell count, unspecified; Y92.234 Operating room of hospital as the place of occurrence of the external cause; Z68.35 Body mass index [BMI] 35.0-35.9, adult; I95.9 Hypotension, unspecified; Z86.010 Personal history of colon polyps; K43.9 Ventral hernia without obstruction or gangrene; Z99.81 Dependence on supplemental oxygen; I48.91 Unspecified atrial fibrillation; E11.65 Type 2 diabetes mellitus with hyperglycemia; Y83.8 Other surgical procedures as the cause of abnormal reaction of the patient, or of later complication, without mention of misadventure at the time of the procedure; N17.9 Acute kidney failure, unspecified; K62.1 Rectal polyp; H54.61 Unqualified visual loss, right eye, normal vision left eye; I10 Essential (primary) hypertension; Y73.3 Surgical instruments, materials and gastroenterology and urology devices (including sutures) associated with adverse incidents; I47.2 Ventricular tachycardia; H20.9 Unspecified iridocyclitis; G47.30 Sleep apnea, unspecified; K91.71 Accidental puncture and laceration of a digestive system organ or structure during a digestive system procedure

== ENCOUNTER 2018-07-10 10:42 | Inpatient (IN) ==
[2018-07-10] MEDS ORDERED: ceFAZolin 1 GM Premix Inj 1 GM/50 ML FROZ.PIGGY IV.SIG PRN (12:04)
[2018-07-10] MEDS ORDERED: METRONIDAZOLE 500 MG IV.SIG PRN (12:05)
[2018-07-10] MEDS ORDERED: Dextrose 5%/NaCl 0.9% Inj 1,000 ML IV.SIG SCH (12:15)
[2018-07-10 12:40] LABS: Baso # (Auto) 0.1 th/mm3 (0.0-0.2); Baso % (Auto) 1.1 % (0.0-2.0); Eos # (Auto) 0.1 th/mm3 (0.0-0.4); Eos % (Auto) 1.5 % (0.0-4.0); Hematocrit 37.7 % (39.0-51.0); Hemoglobin 12.5 gm/dL (13.0-17.0); Lymph # (Auto) 1.1 th/mm3 (1.0-4.8); Lymph % (Auto) 12.5 % (9.0-44.0); Mean Corpuscular HGB Conc 33.2 % (32.0-36.0); Mean Corpuscular Hemoglobin 28.5 pg (27.0-34.0); Mean Corpuscular Volume 85.9 fL (80.0-100.0); Mean Platelet Volume 9.5 fL (7.0-11.0); Mono # (Auto) 0.6 th/mm3 (0.0-0.9); Mono % (Auto) 7.1 % (0.0-8.0); Neut # (Auto) 6.9 th/mm3 (1.8-7.7); Neut % (Auto) 77.8 % (16.0-70.0); Platelet Count 247 th/mm3 (150-450); Red Blood Count 4.38 mil/mm3 (4.50-5.90); White Blood Count 8.8 th/mm3 (4.0-11.0)
[2018-07-10] MEDS ORDERED: Metoprolol Tartrate 25 MG Tablet PO ONE (12:45)
[2018-07-10] MEDS ORDERED: Sodium Chlor 0.9% Inj 500 ML IV.CONT ONE (12:45)
[2018-07-10] MEDS ORDERED: Chlorhexidine Gluconate 2% 1 Pack (2 Cloths) TOPICAL ONE (12:45)
[2018-07-10 13:04] VITALS: BP 137/72; PULSE 143; RESP 20; TEMP 97.3; O2SAT 99
--- NOTE | 2018-07-11 21:28 | ECG ---
Date Performed: 07/10/2018 Time Performed: 12:23:21 PTAGE: 67 years EKG: ATRIAL FLUTTER/TACHYCARDIA WITH RAPID VENTRICULAR RESPONSE PATTERN CONSISTENT WITH PULMONAR Y DISEASE LEFT ANTERIOR FASCICULAR BLOCK ST DEPRESSION, CONSIDER SUBENDOCARDIAL INJURY ABNORMAL QRS-T ANGLE ABNORMAL ECG PREVIOUS TRACING : 04/28/2018 08.28 Compared to previous tracing, ATRIAL FLUTTER IS NEW DOCTOR: Melecio Gaspar Interpretating Date/Time 07/11/2018 21:27:37
== END 2018-07-10 13:14 | disposition home or self-care (01) ==
LOC: HSDI 10:42
PROVIDERS: ADMIT Colon & Rectal Surgery; ATTEND Colon & Rectal Surgery

== ENCOUNTER 2018-07-10 13:54 | Inpatient (IN) ==
--- NOTE | 2018-07-10 14:06 | ED ---
HPI General Chief Complaint: Arrhythmia / Palpitations Stated Complaint: Medical Time Seen by Provider: 07/10/18 13:56 History of Present Illness HPI narrative: This patient came in for a planned surgery to reverse his ileostomy. He has history of chronic A. fib and stopped his Eliquis a few days ago in preparation for surgery. It sounds like he got confused and thought he was supposed to stop his Cardizem as well which he did. Before getting put under anesthesia, it was found that he had A. fib with RVR. They decided to send him to the emergency room and canceled the surgery. He arrives with a rate of 140. However he is very minimally symptomatic. He is not having any chest pain or presyncopal symptoms. Duration 1 day. No alleviating factors. Symptoms are exacerbated by his cessation of rate limiting medication. Symptom severity is mild Related Data Home Medications Medication Instructions Recorded Confirmed atropine 1 drop RIGHT EYE DAILY 04/17/18 07/10/18 hydrochlorothiazide 50 mg PO QAM 04/17/18 07/10/18 metformin 1,000 mg PO BID 04/17/18 07/10/18 subcutaneous insulin pump 04/24/18 07/10/18 Previous Rx's Medication Instructions Recorded apixaban [Eliquis] 5 mg PO BID tab 04/29/18 diltiazem HCl [Cardizem CD] 180 mg PO BID cap 04/29/18 Allergies Allergy/AdvReac Type Severity Reaction Status Date / Time No Known Allergies Allergy Verified 07/10/18 14:05 Review of Systems ROS: all other systems reviewed are negative PMFSH Social History Social History Substance History: No History of Abuse Second Hand Smoke Exposure: No Smoking Status: Never smoker Tobacco Type: Cigarettes How Often Do You Have a Drink Containing Alcohol: Never Recent Travel in [facility] within the Last 8 Weeks: No Recent Out of Country Travel within the Last 8 Weeks: No Exam Narrative Exam Narrative: GENERAL: Well-nourished, well-developed patient in no apparent distress. SKIN: Focused skin assessment reveals no rash and nodules. Skin is Warm and dry. HEAD: Atraumatic. Normocephalic. EYES: Pupil on the left is round and reactive but pupil on the right is clouded over. No scleral icterus. No injection or drainage. ENT: No nasal bleeding or discharge. Mucous membranes pink and moist. NECK: Trachea midline. No JVD. CARDIOVASCULAR: Irregularly irregular rhythm. No murmur appreciated. Rate 140 RESPIRATORY: No accessory muscle use. Clear to auscultation. Breath sounds equal bilaterally. GASTROINTESTINAL: Abdomen soft, non-tender, nondistended. Hepatic and splenic margins not palpable. MUSCULOSKELETAL: No obvious deformities. No clubbing. No cyanosis. No edema. NEUROLOGICAL: Awake and alert. No obvious cranial nerve deficits. Motor grossly within normal limits. Normal speech. PSYCHIATRIC: Appropriate mood and affect; insight and judgment normal. Course Initial Documented Vital Signs Pulse Rate 142 H 07/10/18 13:59 Respiratory Rate 18 07/10/18 13:59 Blood Pressure 145/82 H 07/10/18 13:59 Pulse Oximetry 99 07/10/18 13:59 Last Documented Vital Signs Pulse Rate 130 H 07/10/18 15:48 Respiratory Rate 18 07/10/18 15:48 Blood Pressure 114/56 L 07/10/18 15:48 Pulse Oximetry 99 07/10/18 15:48 Critical Care Time Critical Care Time: Yes Total Critical Care Time: 35 Attestation: Aggregate critical care time was 35 minutes. Time to perform other separately billable procedures was not included in the critical care time. My time did not include minutes spent treating any other patients simultaneously or on activities that did not directly contribute to the patient's treatment. The services I provided to this patient were to treat and/or prevent clinically significant deterioration that could result in: Cardiopulmonary arrest, cardiogenic shock, myocardial injury I provided critical care services requiring my management, as noted below: Chart data review, documentation time, medication orders and management, vital sign assessments/reviewing monitor data, ordering and reviewing lab tests, ordering and interpreting/reviewing x-rays and diagnostic studies, care of the patient and discussion of the patient with the admitting physicians. Medical Decision Making MDM Narrative Medical decision making narrative: IV placed and labs sent. EKG shows a flutter with RVR and a rate of 141. Extended cardiac monitoring confirms a flutter with RVR. I gave him 20 mg IV Cardizem. We will continually reassess his rate. 20 mg of IV Cardizem did nothing for his rate. I gave him a second dose of 20 mg IV Cardizem. On third recheck he likewise still significantly tachycardic in the 130s. I have initiated Cardizem drip and we will titrate to greater effect Labs reviewed. Has hyperglycemia and renal insufficiency. However despite multiple IV doses of cardiac medication his heart rate is not controlled. He will require admission to telemetry on a Cardizem drip. I have reviewed with the [facility] admitting physician. Medical Screen Exam Complete: Yes Emergency Medical Condition: Yes Differential Diagnosis Differential Diagnosis: A flutter, SVT, ventricular tachycardia Medical Records Medical records reviewed: Yes I reviewed the patient's medical records. Lab Data Lab results reviewed: Yes I reviewed the patient's lab results. Lab results narrative: Labs reveal hyperglycemia and renal insufficiency Result diagrams: 07/10/18 14:25 07/10/18 14:25 Lab Results 07/10/18 07/10/18 Range/Units 14:25 14:25 WBC 8.7 (4.0-11.0) th/mm3 RBC 4.28 L (4.50-5.90) mil/mm3 Hgb 12.4 L (13.0-17.0) gm/dL Hct 36.5 L (39.0-51.0) % MCV 85.2 (80.0-100.0) fL MCH 28.9 (27.0-34.0) pg MCHC 33.9 (32.0-36.0) % RDW 14.9 (11.6-17.2) % Plt Count 270 (150-450) th/mm3 MPV 8.9 (7.0-11.0) fL Neut % (Auto) 79.5 H (16.0-70.0) % Lymph % (Auto) 10.9 (9.0-44.0) % [place] % (Auto) 6.9 (0.0-8.0) % Eos % (Auto) 1.5 (0.0-4.0) % Baso % (Auto) 1.2 (0.0-2.0) % Neut # (Auto) 6.9 (1.8-7.7) th/mm3 Lymph # (Auto) 0.9 L (1.0-4.8) th/mm3 [place] # (Auto) 0.6 (0.0-0.9) th/mm3 Eos # (Auto) 0.1 (0.0-0.4) th/mm3 Baso # (Auto) 0.1 (0.0-0.2) th/mm3 WBC Differential . Differential Comment Auto diff final Sodium 141 (136-145) meq/L Potassium 4.8 (3.5-5.1) meq/L Chloride 106 (98-107) meq/L Carbon Dioxide 22.8 (21.0-32.0) meq/L Anion Gap 12 (5-15) meq/L BUN 17 (7-18) mg/dL Creatinine 1.40 H (0.60-1.30) mg/dL Estimated GFR 51 L (>89) mL/min Random Glucose 263 H (74-106) mg/dL Calcium 8.0 L (8.5-10.1) mg/dL Imaging Data Radiologist's impression: Chest X-Ray 07/10/18 00:00 CONCLUSION: 1. No acute abnormality or significant interval change. ECG Data EKG Prior to Arrival: No Attestation: I personally reviewed and interpreted this ECG as follows: Prior ECG tracings: not available for review Interpretation: EKG shows atrial flutter with a rate of 141. No acute ST elevation. GA interval impossible to characterize given the nature of the a flutter. Discharge Plan Discharge Disposition Patient Disposition: 30 Still Patient Discharge Details Diagnosis: Atrial fibrillation with RVR Physicians Team ED Provider: Javad Anderson Primary Care Provider: Rashaun Ramon Rxs /Orders / Referrals /Forms Prescriptions: No Action hydrochlorothiazide 50 mg Tablet 50 mg PO QAM RF: 0 metformin 1,000 mg Tablet 1,000 mg PO BID RF: 0 atropine 1 % Drops 1 drop RIGHT EYE DAILY RF: 0 subcutaneous insulin pump auto-injector RF: 0 diltiazem HCl [Cardizem CD] 180 mg Capsule,Extended Release 24hr 180 mg PO BID RF: 0 apixaban [Eliquis] 5 mg Tablet 5 mg PO BID RF: 0 Discharge Interventions Interventions: Vital Signs Last Done: 07/10/18 15:48 Status ED Status: With Doctor
[2018-07-10 14:38] LABS: Baso # (Auto) 0.1 th/mm3 (0.0-0.2); Baso % (Auto) 1.2 % (0.0-2.0); Eos # (Auto) 0.1 th/mm3 (0.0-0.4); Eos % (Auto) 1.5 % (0.0-4.0); Hematocrit 36.5 % (39.0-51.0); Hemoglobin 12.4 gm/dL (13.0-17.0); Lymph # (Auto) 0.9 th/mm3 (1.0-4.8); Lymph % (Auto) 10.9 % (9.0-44.0); Mean Corpuscular HGB Conc 33.9 % (32.0-36.0); Mean Corpuscular Hemoglobin 28.9 pg (27.0-34.0); Mean Corpuscular Volume 85.2 fL (80.0-100.0); Mean Platelet Volume 8.9 fL (7.0-11.0); Mono # (Auto) 0.6 th/mm3 (0.0-0.9); Mono % (Auto) 6.9 % (0.0-8.0); Neut # (Auto) 6.9 th/mm3 (1.8-7.7); Neut % (Auto) 79.5 % (16.0-70.0); Platelet Count 270 th/mm3 (150-450); Red Blood Count 4.28 mil/mm3 (4.50-5.90); Red Cell Distribution Width 14.9 % (11.6-17.2); White Blood Count 8.7 th/mm3 (4.0-11.0)
[2018-07-10] MEDS ORDERED: Sod Chloride 0.9% Inj 1,000 ML IV.SIG ONE (14:38)
[2018-07-10 14:58] LABS: Carbon Dioxide 22.8 meq/L (21.0-32.0); Potassium 4.8 meq/L (3.5-5.1)
[2018-07-10] MEDS: dilTIAZem Inj 125 MG in Sodium Chlor 0.9% Inj 100 ML IV.CONT PRN (15:14)
[2018-07-10] MEDS ORDERED: Dextrose 50% in Water 50 ML Vial IV.PUSH PRN (16:02)
--- NOTE | 2018-07-10 16:22 | XR ---
EXAM DATE: 07/10/2018 12:00 AM EDT AGE/SEX: 67 years / Male INDICATIONS: Palpitations, cough. CLINICAL DATA: This is the patient's initial encounter. Patient reports that signs and symptoms have been present for 1 day and indicates a pain score of 0/10. MEDICAL/SURGICAL HISTORY: None. . Ileostomy. [place]PAR[place] [facility] [place] 1[place] S[place] AP, 04/28/2018. . FINDINGS: No significant new focal pleural or parenchymal opacities. The cardiomediastinal contours are stable. Osseous structures are intact. CONCLUSION: 1. No acute abnormality or significant interval change. Electronically signed by: Hipolito Babin MD 07/10/2018 4:20 PM EDT
--- NOTE | 2018-07-10 16:27 | P.HP ---
<Liudmila Orlando - Last Filed: 07/10/18 17:25> History of Present Illness Primary Care Physician: Rashaun Ramon DO History of Present Illness: This is a 67-year-old male patient with past medical history which includes chronic kidney disease stage III, essential hypertension, diabetes mellitus on both oral medication and insulin and atrial fibrillation. This [place] [facility] [place] planned surgery to reverse his ileostomy. He has history of A. fib and was instructed to stop his Eliquis a few days ago in preparation for surgery. It sounds like he got confused and thought he was supposed to stop his Cardizem which he did. Before getting put under anesthesia, patient was found to be in A. fib with RVR. The surgery was cancelled and patient was sent to the ER. Apon arrival to the ER patient was in A Fib RVR with a heart rate of 140. However he is very minimally symptomatic. Patient denies having any chest pain, dizziness, feeling lightheaded, presyncopal symptoms or palpitations. No alleviating factors. Symptoms are exacerbated by his cessation of rate limiting medication. Symptom severity is mild. PMH: chronic kidney disease stage III, essential hypertension, type 2 diabetes mellitus on both oral medication and insulin and atrial fibrillation PSxH: Polypectomy with ileostomy 04/24/2018 FMH: patient's father had cancer unknown type and CAD Social history: ETOH use 1-2 drinks per week former tobacco use, quit smoking over 1 year ago denies illicit drug use - Diagnosis (1) Atrial fibrillation with RVR Review of Systems All other systems reviewed negative except as stated in HPI [facility] - History History Provided By: Patient - Medical History Medical History: Medical History (Last Reviewed 07/10/18 @ 14:03 by Jennifer Alcaraz) 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, managed as type 1 Hypertension Insulin pump in place Sleep apnea with use of continuous positive airway pressure (CPAP) Wears dentures Wears glasses - Surgical History Surgical History: Surgical History (Last Reviewed 07/10/18 @ 14:03 by Jennifer Alcaraz) H/O ileostomy History of partial colectomy History of sinus surgery Hx of cardiac catheterization Hx of eye surgery - Tobacco History Second Hand Smoke Exposure: No Smoking Status: Never smoker Tobacco Type: Cigarettes - Alcohol History How Often Do You Have a Drink Containing Alcohol: Never - Substance Use History Substance History: No History of Abuse - Travel History Recent Travel in the [place] Within the Last 8 Weeks: No Recent Travel Out of the Country Within the Last 8 Weeks: No - Immunization History Tetanus Immunization: >5 Years Medications and Allergies Allergies Allergy/AdvReac Type Severity Reaction Status Date / Time No Known Allergies Allergy Verified 07/10/18 14:05 Home Medications Medication Instructions Recorded Confirmed Type atropine 1 drop RIGHT EYE DAILY 04/17/18 07/10/18 History hydrochlorothiazide 50 mg PO QAM 04/17/18 07/10/18 History metformin 1,000 mg PO BID 04/17/18 07/10/18 History subcutaneous insulin pump 04/24/18 07/10/18 History Active Medications: Active Medications Atropine Sulfate (Isopto Atropine 1% Opth Drops) drops RIGHT EYE DAILY [facility] Dextrose (D50w Vial) 50 ml IV.PUSH UNSCH PRN PRN Reason: PER HYPOGLYCEMIA PROTOCOL Diltiazem HCl (Cardizem Cd 24hr) 180 mg PO BID [facility] Glucagon (Glucagon Inj) 1 mg OTHER PRN PRN PRN Reason: for Hypoglycemia Protocol Hydrochlorothiazide (Hydrodiuril) 50 mg PO QAM [facility] Diltiazem HCl 125 mg/ Sodium (Chloride) 125 mls @ 5 mls/hr IV.CONT TITRATE PRN ; Protocol PRN Reason: Per Protocol Last Titration: 07/10/18 15:48 Dose: 10 mg/hr, 10 mls/hr Insulin Aspart (Novolog Insulin Correctional Sugar Inj) 0 unit SQ ACHS [facility]; Protocol Non-Formulary Medication (Metformin [Metformin]) 1,000 mg PO BID [facility] Sodium Chloride (Ns Flush) 2 ml IV.FLUSH UNSCH PRN PRN Reason: FLUSH AFTER USING IV ACCESS Sodium Chloride (Ns Flush) 2 ml IV.FLUSH BID [facility] Exam Vital signs: Vital Signs 07/10/18 13:59 07/10/18 14:07 07/10/18 15:12 Pulse Rate 142 H 146 H 149 H Respiratory Rate 18 20 Blood Pressure 145/82 H 120/74 Pulse Oximetry 99 98 07/10/18 15:48 Pulse Rate 130 H Respiratory Rate 18 Blood Pressure 114/56 L Pulse Oximetry 99 Intake & Output 07/09/18 07/10/18 07/10/18 18:59 06:59 18:59 Weight 113.398 kg Narrative: GENERAL: This is a well-nourished, well-developed patient, in no apparent distress. CARDIOVASCULAR: Irregularly irregular and tachycardic RESPIRATORY: Clear to auscultation. Breath sounds equal bilaterally. GASTROINTESTINAL: Abdomen soft, non-tender, nondistended. Normal active bowel sounds. Ileostomy present MUSCULOSKELETAL: Extremities without clubbing, cyanosis, or edema. NEURO: Alert & Oriented x4 to person, place, time, situation. Moves all ext x4 Results - Labs CBC & Chem 7: 07/10/18 14:25 07/10/18 14:25 Labs: Laboratory Results - last 24 hr 07/10/18 07/10/18 14:25 14:25 WBC 8.7 RBC 4.28 L Hgb 12.4 L Hct 36.5 L MCV 85.2 MCH 28.9 MCHC 33.9 RDW 14.9 Plt Count 270 MPV 8.9 Neut % (Auto) 79.5 H Lymph % (Auto) 10.9 Hall % (Auto) 6.9 Eos % (Auto) 1.5 Baso % (Auto) 1.2 Neut # (Auto) 6.9 Lymph # (Auto) 0.9 L Hall # (Auto) 0.6 Eos # (Auto) 0.1 Baso # (Auto) 0.1 WBC Differential . Differential Comment Auto diff final Sodium 141 Potassium 4.8 Chloride 106 Carbon Dioxide 22.8 Anion Gap 12 BUN 17 Creatinine 1.40 H Estimated GFR 51 L Random Glucose 263 H Calcium 8.0 L Caprini VTE Risk Assessment Caprini VTE Risk Assessment: Moderate/High Risk (score >= 2) Caprini Risk Assessment Model: Point Value = 1 Point Value = 2 Point Value = 3 Point Value = 5 Age 41-60 Minor surgery BMI > 25 kg/m2 Swollen legs Varicose veins or History of unexplained or recurrent spontaneous Oral contraceptives or hormone replacement Sepsis (< 1 month) Serious lung disease, including pneumonia (< 1 month) Abnormal pulmonary function Acute myocardial infarction Congestive heart failure (< 1 month) History of inflammatory bowel disease Medical patient at bed rest Age 61-74 Arthroscopic surgery Major open surgery (> 45 min) Laparoscopic surgery (> 45 min) Malignancy Confined to bed (> 72 hours) Immobilizing plaster cast Central venous access Age >= 75 History of VTE Family history of VTE Factor V Leiden Prothrombin [id number] Lupus anticoagulant Anticardiolipin antibodies Elevated serum homocysteine Heparin-induced thrombocytopenia Other congenital or acquired thrombophilia Stroke (< 1 month) Elective arthroplasty Hip, pelvis, or leg fracture Acute spinal cord injury (< 1 month) Prophylaxis Regimen: Total Risk Factor Score Risk Level Prophylaxis Regimen 0-1 Low Early ambulation 2 Moderate Order ONE of the following: *Sequential Compression Device (SCD) *Heparin 5000 units SQ BID 3-4 Higher Order ONE of the following medications: *Heparin 5000 units SQ TID *Enoxaparin/Lovenox 40 mg SQ daily (WT < 150 kg, CrCl > 30 mL/min) *Enoxaparin/Lovenox 30 mg SQ daily (WT < 150 kg, CrCl > 10-29 mL/min) *Enoxaparin/Lovenox 30 mg SQ BID (WT < 150 kg, CrCl > 30 mL/min) AND/OR *Sequential Compression Device (SCD) 5 or more Highest Order ONE of the following medications: *Heparin 5000 units SQ TID (Preferred with Epidurals) *Enoxaparin/Lovenox 40 mg SQ daily (WT < 150 kg, CrCl > 30 mL/min) *Enoxaparin/Lovenox 30 mg SQ daily (WT < 150 kg, CrCl > 10-29 mL/min) *Enoxaparin/Lovenox 30 mg SQ BID (WT < 150 kg, CrCl > 30 mL/min) AND *Sequential Compression Device (SCD) Assessment and Plan - Assessment (1) Atrial fibrillation with RVR Code(s): I48.91 - Unspecified atrial fibrillation Status: Acute Plan: Atrial fibrillation/flutter with RVR This is a 67-year-old male patient with past medical history which includes chronic kidney disease stage III, essential hypertension, diabetes mellitus on both oral medication and insulin and atrial fibrillation. This patient came [place] [facility] planned surgery to reverse his ileostomy. He has history of A. fib and was instructed to stop his Eliquis a few days ago in preparation for surgery. It sounds like he got confused and thought he was supposed to stop his Cardizem which he did. Before getting put under anesthesia, patient was found to be in A. fib with RVR. The surgery was cancelled and patient was sent to the ER. Apon arrival to the ER patient was in A Fib RVR with a heart rate of 140. However he is very minimally symptomatic. Patient denies having any chest pain, dizziness, feeling lightheaded, presyncopal symptoms or palpitations. No alleviating factors. Symptoms are exacerbated by his cessation of rate limiting medication. Symptom severity is mild. -Continue home Cardizem 180 mg p.o. twice a day and Cardizem drip -wean drip as tolerated - Resume Eliquis, if HR stabilizes plan to hold Eliquis Saturday for possible surgery on Saturday - Continuous cardiac telemetry -2D echocardiogram ordered and pending - patient's heart rate continues to be elevated at 150 bpm - add digoxin 0.5 mg now then second dose in 6 hours if Chronic kidney disease stage III -Avoid nephrotoxic agents Hypertension -Continue patient's home to tell exam 180 mg p.o. twice daily Diabetes mellitus on both oral medication and insulin Continue patient's home metformin 1000 mg PO BID Accu-Cheks AC at bedtime with sliding scale insulin coverage Patient has insulin pump- patient may use/manage insulin pump while in the hospital Diabetic diet DVT prophylaxis with SCDs <Milton Jones - Last Filed: 07/11/18 14:07> History of Present Illness Primary Care Physician: Rashaun Ramon DO - Diagnosis (1) Atrial fibrillation with RVR Inpatient Certification: I certify that the inpatient services were ordered in accordance with Medicare regulations governing the order. 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, managed as type 1 Hypertension Insulin pump in place Sleep apnea with use of continuous positive airway pressure (CPAP) Wears dentures Wears glasses - Surgical History Surgical History: Surgical History (Last Reviewed 07/10/18 @ 14:03 by Jennifer Alcaraz) H/O ileostomy History of partial colectomy History of sinus surgery Hx of cardiac catheterization Hx of eye surgery Medications and Allergies Active Medications: Active Medications Apixaban (Eliquis) 5 mg PO BID [facility] Last Admin: 07/11/18 09:12 Dose: 5 mg Atropine Sulfate (Isopto Atropine 1% Opth Drops) 1 drops RIGHT EYE DAILY [facility] Last Admin: 07/11/18 09:12 Dose: 1 drops Dextrose (D50w Vial) 50 ml IV.PUSH UNSCH PRN PRN Reason: PER HYPOGLYCEMIA PROTOCOL Diltiazem HCl (Cardizem Cd 24hr) 180 mg PO BID [facility] Last Admin: 07/11/18 09:11 Dose: 180 mg Glucagon (Glucagon Inj) 1 mg OTHER PRN PRN PRN Reason: for Hypoglycemia Protocol Hydrochlorothiazide (Hydrodiuril) 50 mg PO DAILY [facility] Last Admin: 07/11/18 09:12 Dose: 50 mg Diltiazem HCl 125 mg/ Sodium (Chloride) 125 mls @ 5 mls/hr IV.CONT TITRATE PRN ; Protocol PRN Reason: Per Protocol Last Titration: 07/11/18 09:14 Dose: Infused Insulin Aspart (Novolog Insulin Correctional Sugar Inj) 0 unit SQ ACHS [facility]; Protocol Last Admin: 07/11/18 12:45 Dose: 2.9 unit [facility] Admin: 07/11/18 09:11 Dose: 1,000 mg Sodium Chloride (Ns Flush) 2 ml IV.FLUSH UNSCH PRN PRN Reason: FLUSH AFTER USING IV ACCESS Sodium Chloride (Ns Flush) 2 ml IV.FLUSH BID [facility] Last Admin: 07/11/18 09:12 Dose: 2 ml Exam Vital signs: Vital Signs 07/10/18 15:12 07/10/18 15:48 07/10/18 16:58 Temperature Pulse Rate 149 H 130 H 142 H Respiratory Rate 20 18 18 Blood Pressure 120/74 114/56 L 122/62 Pulse Oximetry 98 99 98 07/10/18 17:10 07/10/18 18:26 07/10/18 19:00 Temperature Pulse Rate 156 H 136 H Respiratory Rate 18 16 Blood Pressure 120/77 113/68 Pulse Oximetry 98 99 99 07/10/18 20:40 07/10/18 23:00 07/11/18 00:00 Temperature 98.4 F 98.2 F Pulse Rate 111 H 79 77 Respiratory Rate 16 14 Blood Pressure 128/61 112/61 Pulse Oximetry 96 96 07/11/18 03:00 07/11/18 04:00 07/11/18 05:10 Temperature 97.6 F Pulse Rate 78 79 67 Respiratory Rate 14 Blood Pressure 139/65 Pulse Oximetry 98 07/11/18 09:16 Temperature Pulse Rate Respiratory Rate Blood Pressure Pulse Oximetry 98 Intake & Output 07/10/18 07/11/18 07/11/18 18:59 06:59 18:59 Intake Total 1000 / 1000 365 / 365 125 / 125 Output Total 650 / 650 Balance 1000 / 1000 -285 / -285 125 / 125 Weight 113.398 kg 115.5 kg Intake: IV 1000 / 1000 125 / 125 125 / 125 Cardizem Inj 125 MG In NS Inj 125 / 125 125 / 125 100 ML @ 5 MG/HR 5 mls/hr IV. CONT TITRATE PRN Rx#:[id number] NS Inj 1,000 ML @ Wide Open IV. 1000 / 1000 SIG BOLUS ONE Rx#:[id number] Oral 240 / 240 Output: Stool Amount (Stoma) 650 / 650 Right Upper Abdomen 650 / 650 Other: # Voids 1 Results - Labs CBC & Chem 7: 07/11/18 04:02 07/11/18 04:02 Labs: Laboratory Results - last 24 hr 07/10/18 07/10/18 07/10/18 14:25 14:25 17:04 WBC 8.7 RBC 4.28 L Hgb 12.4 L Hct 36.5 L MCV 85.2 MCH 28.9 MCHC 33.9 RDW 14.9 Plt Count 270 MPV 8.9 Neut % (Auto) 79.5 H Lymph % (Auto) 10.9 Hall % (Auto) 6.9 Eos % (Auto) 1.5 Baso % (Auto) 1.2 Neut # (Auto) 6.9 Lymph # (Auto) 0.9 L Hall # (Auto) 0.6 Eos # (Auto) 0.1 Baso # (Auto) 0.1 WBC Differential . Differential Comment Auto diff final Sodium 141 Potassium 4.8 Chloride 106 Carbon Dioxide 22.8 Anion Gap 12 BUN 17 Creatinine 1.40 H Estimated GFR 51 L POC Glucose 196 H Random Glucose 263 H Calcium 8.0 L Digoxin 07/10/18 07/11/18 07/11/18 21:02 04:02 04:02 WBC 8.4 RBC 4.32 L Hgb 12.4 L Hct 36.8 L MCV 85.2 MCH 28.7 MCHC 33.7 RDW 15.2 Plt Count 268 MPV 8.6 Neut % (Auto) Lymph % (Auto) Hall % (Auto) Eos % (Auto) Baso % (Auto) Neut # (Auto) Lymph # (Auto) Hall # (Auto) Eos # (Auto) Baso # (Auto) WBC Differential Differential Comment Sodium 140 Potassium 3.7 D Chloride 108 H Carbon Dioxide 23.8 Anion Gap 8 BUN 16 Creatinine 1.32 H Estimated GFR 54 L POC Glucose 199 H Random Glucose 55 L D Calcium 8.4 L Digoxin 1.2 07/11/18 07/11/18 07/11/18 08:31 09:08 12:43 WBC RBC Hgb Hct MCV MCH MCHC RDW Plt Count MPV Neut % (Auto) Lymph % (Auto) Hall % (Auto) Eos % (Auto) Baso % (Auto) Neut # (Auto) Lymph # (Auto) Hall # (Auto) Eos # (Auto) Baso # (Auto) WBC Differential Differential Comment Sodium Potassium Chloride Carbon Dioxide Anion Gap BUN Creatinine Estimated GFR POC Glucose 59 L 84 162 H Random Glucose Calcium Digoxin - Imaging Impressions Chest X-Ray 07/10/18 00:00 CONCLUSION: 1. No acute abnormality or significant interval change. Caprini VTE Risk Assessment Caprini Risk Assessment Model: Point Value = 1 Point Value = 2 Point Value = 3 Point Value = 5 Age 41-60 Minor surgery BMI > 25 kg/m2 Swollen legs Varicose veins or History of unexplained or recurrent spontaneous Oral contraceptives or hormone replacement Sepsis (< 1 month) Serious lung disease, including pneumonia (< 1 month) Abnormal pulmonary function Acute myocardial infarction Congestive heart failure (< 1 month) History of inflammatory bowel disease Medical patient at bed rest Age 61-74 Arthroscopic surgery Major open surgery (> 45 min) Laparoscopic surgery (> 45 min) Malignancy Confined to bed (> 72 hours) Immobilizing plaster cast Central venous access Age >= 75 History of VTE Family history of VTE Factor V Leiden Prothrombin [id number] Lupus anticoagulant Anticardiolipin antibodies Elevated serum homocysteine Heparin-induced thrombocytopenia Other congenital or acquired thrombophilia Stroke (< 1 month) Elective arthroplasty Hip, pelvis, or leg fracture Acute spinal cord injury (< 1 month) Prophylaxis Regimen: Total Risk Factor Score Risk Level Prophylaxis Regimen 0-1 Low Early ambulation 2 Moderate Order ONE of the following: *Sequential Compression Device (SCD) *Heparin 5000 units SQ BID 3-4 Higher Order ONE of the following medications: *Heparin 5000 units SQ TID *Enoxaparin/Lovenox 40 mg SQ daily (WT < 150 kg, CrCl > 30 mL/min) *Enoxaparin/Lovenox 30 mg SQ daily (WT < 150 kg, CrCl > 10-29 mL/min) *Enoxaparin/Lovenox 30 mg SQ BID (WT < 150 kg, CrCl > 30 mL/min) AND/OR *Sequential Compression Device (SCD) 5 or more Highest Order ONE of the following medications: *Heparin 5000 units SQ TID (Preferred with Epidurals) *Enoxaparin/Lovenox 40 mg SQ daily (WT < 150 kg, CrCl > 30 mL/min) *Enoxaparin/Lovenox 30 mg SQ daily (WT < 150 kg, CrCl > 10-29 mL/min) *Enoxaparin/Lovenox 30 mg SQ BID (WT < 150 kg, CrCl > 30 mL/min) AND *Sequential Compression Device (SCD) Assessment and Plan - Assessment (1) Atrial fibrillation with RVR Code(s): I48.91 - Unspecified atrial fibrillation Status: Acute - Attending Attestation Patient examined. Assessment and plan formulated with Liudmila MEDINA I agree with the above.
[2018-07-10] MEDS: Insulin NovoLOG Aspart Correctional Sugar Inj SQ SCH ×2 (17:07→22:31)
[2018-07-10] MEDS ORDERED: Digoxin Inj 500 MCG/2 ML Ampul IV.PUSH ONE ×2 (18:00→23:00)
[2018-07-10] MEDS: dilTIAZem CD 180 MG Capsule PO SCH (22:30)
[2018-07-11] MEDS: dilTIAZem Inj 125 MG in Sodium Chlor 0.9% Inj 100 ML IV.CONT PRN (00:38)
[2018-07-11 04:24] LABS: Hematocrit 36.8 % (39.0-51.0); Hemoglobin 12.4 gm/dL (13.0-17.0); Mean Corpuscular HGB Conc 33.7 % (32.0-36.0); Mean Corpuscular Hemoglobin 28.7 pg (27.0-34.0); Mean Corpuscular Volume 85.2 fL (80.0-100.0); Mean Platelet Volume 8.6 fL (7.0-11.0); Platelet Count 268 th/mm3 (150-450); Red Blood Count 4.32 mil/mm3 (4.50-5.90); Red Cell Distribution Width 15.2 % (11.6-17.2); White Blood Count 8.4 th/mm3 (4.0-11.0)
[2018-07-11 05:04] LABS: Calcium 8.4 mg/dL (8.5-10.1); Carbon Dioxide 23.8 meq/L (21.0-32.0); Digoxin 1.2 ng/mL (0.8-2.0); Potassium 3.7 meq/L (3.5-5.1)
--- NOTE | 2018-07-11 07:05 | P.PNCS ---
Subjective Interval history: D/W Dr Jones. A-Fib with RVR. Now controlled this AM. Pt has $300.00 per day hospital cost. Wants to go home [facility] since the earliest that I can do surgery is next Saturday or later. Will D/W Dr Jones.Pt is asymptomatic. Objective Result Diagrams: 07/11/18 04:02 07/11/18 04:02
[2018-07-11 07:11] VITALS: O2SAT 98
[2018-07-11] MEDS ORDERED: Atropine 1% Opth Drops 2 ML Bottle RIGHT EYE SCH (09:00)
[2018-07-11] MEDS: dilTIAZem CD 180 MG Capsule PO SCH (09:11)
[2018-07-11] MEDS: Insulin NovoLOG Aspart Correctional Sugar Inj SQ SCH ×2 (09:11→12:45)
[2018-07-11] MEDS ORDERED: Digoxin Inj 500 MCG/2 ML Ampul IV.PUSH ONE (11:30)
--- NOTE | 2018-07-11 12:39 | ECHRPT ---
Indication: Atrial Fib and Flutter CONCLUSIONS Normal left ventricular size. Wall thickness is measured at the upper limits of normal. The left ventricular systolic function is normal with an estimated ejection fraction in the range of 55-60%. Mitral annular calcification is present. Trace mitral valve regurgitation. There is trace tricuspid valve regurgitation. The estimated pulmonary arterial pressure is 39 mmHg. BP: / HR: Rhythm: MEASUREMENTS (Male / Female) Normal Values Technical Quality:Good 2D ECHO LV Diastolic Diameter PLAX 5.5 cm 4.2 - 5.9 / 3.9 - 5.3 cm LV Systolic Diameter PLAX 3.5 cm IVS Diastolic Thickness 1.2 cm 0.6 - 1.0 / 0.6 - 0.9 cm LVPW Diastolic Thickness 1.1 cm 0.6 - 1.0 / 0.6 - 0.9 cm LV Relative Wall Thickness 0.4 RV Internal Dim ED PLAX 2.9 cm LVOT Diameter 2.4 cm Aortic Root Diameter 3.2 cm LA Systolic Diameter LX 4.7 cm 3.0 - 4.0 / 2.7 - 3.8 cm M-MODE AV Cusp Separation MM 2.2 cm DOPPLER AV Peak Velocity 153.0 cm/s AV Peak Gradient 9.4 mmHg LVOT Peak Velocity 122.0 cm/s LVOT Peak Gradient 6.0 mmHg AV Area Cont Eq pk 3.6 cm Mitral E Point Velocity 103.0 cm/s Mitral A Point Velocity 91.8 cm/s Mitral E to A Ratio 1.1 LV E' Lateral Velocity 13.3 cm/s Mitral E to LV E' Lateral Ratio 7.7 LV E' Septal Velocity 10.6 cm/s Mitral E to LV E' Septal Ratio 9.7 TR Peak Velocity 271.0 cm/s TR Peak Gradient 29.4 mmHg Right Atrial Pressure 10.0 mmHg Pulmonary Artery Systolic Pressu 39.4 mmHg Right Ventricular Systolic Press 39.4 mmHg PV Peak Velocity 121.0 cm/s PV Peak Gradient 5.9 mmHg FINDINGS LEFT VENTRICLE Normal left ventricular size. Wall thickness is measured at the upper limits of normal. The left ventricular systolic function is normal with an estimated ejection fraction in the range of 55-60%. RIGHT VENTRICLE Normal right ventricular size and systolic function. LEFT ATRIUM The left atrial size is mildly dilated. RIGHT ATRIUM The right atrial size is normal. ATRIAL SEPTUM Normal atrial septal thickness without atrial level shunting by limited color doppler interrogation. AORTA The aortic root and proximal ascending aorta are normal in size on limited imaging. MITRAL VALVE Mitral annular calcification is present. Trace mitral valve regurgitation. AORTIC VALVE Trileaflet aortic valve. Trileaflet aortic valve. No aortic valve stenosis or regurgitation. TRICUSPID VALVE There is trace tricuspid valve regurgitation. The estimated pulmonary arterial pressure is 39 mmHg. PULMONARY VALVE No pulmonary valve regurgitation or stenosis. VESSELS The inferior vena cava is normal in size. PERICARDIUM No pericardial effusion. Neel Morrissey MD, FACC (Electronically Signed) Final Date:11 July 2018 12:38
--- NOTE | 2018-07-11 14:17 | P.PNIM ---
Subjective Interval history: Pt has NO new complaints. No chest pain, no palpitations, no SOB. Pt is requesting discharge. Physical Exam Vital signs: 07/11/18 03:00 07/11/18 04:00 07/11/18 05:10 Temperature 97.6 F Pulse Rate 78 79 67 Respiratory Rate 14 Blood Pressure 139/65 Pulse Oximetry 98 Narrative: GENERAL: This is a well-nourished, well-developed patient, in no apparent distress. CARDIOVASCULAR: regular RESPIRATORY: Clear to auscultation. Breath sounds equal bilaterally. GASTROINTESTINAL: Abdomen soft, non-tender, nondistended. Normal active bowel sounds. Ileostomy present MUSCULOSKELETAL: Extremities without clubbing, cyanosis, or edema. NEURO: Alert & Oriented x4 to person, place, time, situation. Moves all ext x4 Results - Labs CBC & Chem 7: 07/11/18 04:02 07/11/18 04:02 - Imaging Chest X-Ray 07/10/18 00:00 1. No acute abnormality or significant interval change. Assessment and Plan - Assessment (1) Atrial fibrillation with RVR Code(s): I48.91 - Unspecified atrial fibrillation Status: Acute Plan: Atrial fibrillation/flutter with RVR This is a 67-year-old male patient with past medical history which includes chronic kidney disease stage III, essential hypertension, diabetes mellitus on both oral medication and insulin and atrial fibrillation. This patient came into [facility] [place] today for a planned surgery to reverse his ileostomy. He has history of A. fib and was instructed to stop his Eliquis a few days ago in preparation for surgery. It sounds like he got confused and thought he was supposed to stop his Cardizem which he did. Before getting put under anesthesia, patient was found to be in A. fib with RVR. The surgery was cancelled and patient was sent to the ER. Apon arrival to the ER patient was in A Fib RVR with a heart rate of 140. However he is very minimally symptomatic. Patient denies having any chest pain, dizziness, feeling lightheaded, presyncopal symptoms or palpitations. No alleviating factors. Symptoms are exacerbated by his cessation of rate limiting medication. Symptom severity is mild. - resumed Cardizem 180 mg p.o. BID - Cardizem drip -weaned to off - Pt loaded with IV digoxin - Pt to continue digoxin 0.125mg Daily upon discharge - Case d/w pt's Surgeon, Dr. Salinas. Pt rescheduled for ileostomy reversal on Saturday 12:30PM. Pt informed. - Echocardiogram (07/11/18) --> EF 55-60% - Resume Eliquis. Pt carefully instucted to take last dose of eliquis saturday. NO Eliquis AFTER SATURDAY NIGHT. - however pt is to continue all other medications - see discharge orders Chronic kidney disease stage III -Avoid nephrotoxic agents Hypertension -Continue patient's home to tell exam 180 mg p.o. twice daily Diabetes mellitus on both oral medication and insulin Continue patient's home metformin 1000 mg PO BID Accu-Cheks AC at bedtime with sliding scale insulin coverage Patient has insulin pump- patient may use/manage insulin pump while in the hospital Diabetic diet DVT prophylaxis with SCDs
[2018-07-11 16:00] VITALS: BP 143/72; PULSE 85; RESP 20; TEMP 98.2
== END 2018-07-11 16:31 | disposition home or self-care (01) ==
LOC: NEPC 13:54 → NEDA 16:52 → HCPC 20:20
PROVIDERS: ADMIT Hospitalist; ATTEND Hospitalist

== ENCOUNTER 2018-07-15 09:56 | Inpatient (IN) ==
[2018-07-15] MEDS ORDERED: Chlorhexidine Gluconate 2% 1 Pack (2 Cloths) TOPICAL ONE (11:15)
[2018-07-15] MEDS ORDERED: Sodium Chlor 0.9% Inj 500 ML IV.CONT ONE (11:15)
[2018-07-15] MEDS ORDERED: Metoprolol Tartrate 25 MG Tablet PO ONE (11:15)
[2018-07-15] MEDS ORDERED: Dextrose 5%/NaCl 0.9% Inj 1,000 ML IV.CONT SCH (11:30)
[2018-07-15 11:45] LABS: Baso # (Auto) 0.1 th/mm3 (0.0-0.2); Baso % (Auto) 1.2 % (0.0-2.0); Eos # (Auto) 0.3 th/mm3 (0.0-0.4); Eos % (Auto) 3.5 % (0.0-4.0); Hematocrit 40.1 % (39.0-51.0); Hemoglobin 13.1 gm/dL (13.0-17.0); Lymph # (Auto) 1.1 th/mm3 (1.0-4.8); Mean Corpuscular HGB Conc 32.8 % (32.0-36.0); Mean Corpuscular Hemoglobin 28.2 pg (27.0-34.0); Mean Corpuscular Volume 86.2 fL (80.0-100.0); Mean Platelet Volume 8.8 fL (7.0-11.0); Mono # (Auto) 0.7 th/mm3 (0.0-0.9); Mono % (Auto) 9.6 % (0.0-8.0); Neut % (Auto) 69.7 % (16.0-70.0); Platelet Count 312 th/mm3 (150-450); Red Blood Count 4.66 mil/mm3 (4.50-5.90); Red Cell Distribution Width 14.7 % (11.6-17.2); White Blood Count 7.1 th/mm3 (4.0-11.0)
[2018-07-15] MEDS ORDERED: Lidocaine PF 1% Inj 5 ML Syringe OTHER ONE (12:53)
[2018-07-15] MEDS ORDERED: Sugammadex Inj 200 MG/2 ML Vial IV.PUSH ONE (13:40)
[2018-07-15] MEDS ORDERED: Potassium Chlor 20 mEq Premix 20 MEQ/100 ML PIGGYBACK IV.SIG PRN ×3 (14:06→14:11)
[2018-07-15] MEDS ORDERED: Potassium Chlor 40 mEq Premix 40 MEQ/100 ML PIGGYBACK IV.SIG PRN ×3 (14:06→14:11)
[2018-07-15] MEDS ORDERED: Dextrose 50% in Water 50 ML Vial IV.PUSH PRN (14:14)
[2018-07-15] MEDS ORDERED: Naloxone Inj 0.4 MG/ML Vial IV.PUSH PRN (14:16)
[2018-07-15] MEDS ORDERED: Morphine Inj 30 MG/30 ML PCA.VIAL PCA PRN (14:16)
[2018-07-15] MEDS ORDERED: fentaNYL Citrate Inj 100 MCG/2 ML Ampul ONE (14:20)
[2018-07-15] MEDS ORDERED: Morphine Inj 30 MG/30 ML PCA.VIAL PCA ONE (14:46)
[2018-07-15 14:50] LABS: Baso # (Auto) 0.1 th/mm3 (0.0-0.2); Baso % (Auto) 1.1 % (0.0-2.0); Eos # (Auto) 0.2 th/mm3 (0.0-0.4); Eos % (Auto) 3.5 % (0.0-4.0); Hemoglobin 12.4 gm/dL (13.0-17.0); Lymph # (Auto) 1.2 th/mm3 (1.0-4.8); Lymph % (Auto) 21.4 % (9.0-44.0); Mean Corpuscular HGB Conc 32.8 % (32.0-36.0); Mean Corpuscular Hemoglobin 28.3 pg (27.0-34.0); Mean Corpuscular Volume 86.3 fL (80.0-100.0); Mean Platelet Volume 8.1 fL (7.0-11.0); Mono # (Auto) 0.5 th/mm3 (0.0-0.9); Neut # (Auto) 3.7 th/mm3 (1.8-7.7); Platelet Count 291 th/mm3 (150-450); Red Cell Distribution Width 14.9 % (11.6-17.2); White Blood Count 5.6 th/mm3 (4.0-11.0)
--- NOTE | 2018-07-15 14:58 | MP ---
cc: Vitaliy Salinas MD DATE OF OPERATION: 07/15/2018 PREOPERATIVE DIAGNOSIS: Diverting loop ileostomy. POSTOPERATIVE DIAGNOSIS: Diverting loop ileostomy. PROCEDURE PERFORMED: Small bowel resection with closure of ileostomy. ANESTHESIA: General endotracheal. SURGEON: Dr. Salinas. ESTIMATED BLOOD LOSS: Minimal. OPERATIVE FINDINGS: This patient had a diverting ileostomy done about 3 months ago at time of a redo low anterior resection for a large polypoid lesion of the rectum. At surgery, the proximal and distal ileum proximal and distally to the ileostomy were mobilized up out of the peritoneal cavity. There were not many adhesions and resection of the small bowel and reanastomosis was done, closing the ileostomy. OPERATIVE TECHNIQUE: The patient was placed on the table in the supine position after adequate general endotracheal anesthesia. The mucosa seromuscular ileal nipple was closed with running 3-0 Vicryl suture. The abdomen was then prepped and draped in the usual manner and a transverse elliptical incision was made around the ileostomy stoma. This incision was carried down through the subcutaneous tissue and down to the rectus muscle fascia. There was a small ileostomy hernia. The peritoneal cavity was entered with the above-mentioned findings. The adhesions were incised with electrocautery and the proximal and distal small bowel were mobilized and prolapsed out of the stoma site. Next, proximally and distally to the ileostomy, the small bowel was cleared and divided with a CALEB 55 stapling device and the mesentery was clamped, cut, and ligated. The proximal and distal small bowel and the ileostomy was removed and sent for permanent section. Next, the anastomosis was carried out along the antimesenteric borders of the small bowel using the Ethicon CALEB 55 stapling device and then the enterotomy was closed with a TX 60 blue staple height stapling device. The small opening in the mesentery was closed with running 3-0 Vicryl suture in a simple running manner. Once this was completed, the bowel was replaced in the abdominal cavity in a director of distance learning manner. There was no evidence of any ischemia of the anastomosis. Blood supply was excellent. Hemostasis was maintained throughout with electrocautery and ligature. Next, the fascia was cleared and the posterior rectus sheath was closed vertically with a running #1-PDS suture and then the anterior rectus sheath was likewise closed with a running #1-PDS suture after irrigating between those layers. Subcutaneous tissue was then irrigated thoroughly with a liter of saline solution, aspirated dry and then the skin was closed with running 3-0 Vicryl subcuticular suture and dressing was applied. Sponge, needle and instrument counts were reported as correct. Estimated blood loss was minimal. Operating time was 45 minutes. The patient tolerated the procedure well and left the operating room in good condition. MD IDALIA Jean-Baptiste/best , 02:30 PM , 02:39 PM
[2018-07-15] MEDS ORDERED: *Meperidine Inj 25 MG/ML Vial PERIprocedural Use ONLY ONE (15:00)
[2018-07-15 15:07] LABS: Calcium 8.6 mg/dL (8.5-10.1); Carbon Dioxide 25.8 meq/L (21.0-32.0); Potassium 3.7 meq/L (3.5-5.1)
[2018-07-15] MEDS: Insulin NovoLIN Regular Correctional Sugar Inj SQ SCH (18:13)
--- NOTE | 2018-07-15 19:59 | ECG ---
Date Performed: 07/15/2018 Time Performed: 10:48:30 PTAGE: 67 years EKG: Sinus rhythm WITH OCCASIONAL VENTRICULAR PREMATURE COMPLEXES BORDERLINE LEFT AXIS DEVIATION BORDERLINE ECG PREVIOUS TRACING : 07/10/2018 12.23 Compared to previous tracing, the previously noted atrial f lutter 2:1 heart block is no longer present DOCTOR: Sherlyn Tipton Interpretating Date/Time 07/15/2018 19:57:12
[2018-07-15] MEDS ORDERED: Zolpidem Tartrate 5 MG Tablet PO PRN (21:00)
[2018-07-15] MEDS: ceFAZolin 2 GM Premix Inj 2 GM/50 ML PIGGYBACK IV.SIG SCH (21:44)
[2018-07-15] MEDS: dilTIAZem CD 180 MG Capsule PO SCH (21:44)
[2018-07-16] MEDS: Insulin NovoLIN Regular Correctional Sugar Inj SQ SCH ×5 (00:30→23:46)
[2018-07-16] MEDS ORDERED: Digoxin 125 MCG Tablet PO ONE (03:00)
[2018-07-16 05:45] LABS: Baso % (Auto) 0.2 % (0.0-2.0); Hematocrit 36.4 % (39.0-51.0); Hemoglobin 11.9 gm/dL (13.0-17.0); Lymph # (Auto) 0.4 th/mm3 (1.0-4.8); Lymph % (Auto) 2.4 % (9.0-44.0); Mean Corpuscular HGB Conc 32.7 % (32.0-36.0); Mean Corpuscular Hemoglobin 28.1 pg (27.0-34.0); Mean Corpuscular Volume 86.1 fL (80.0-100.0); Mean Platelet Volume 8.7 fL (7.0-11.0); Mono % (Auto) 5.9 % (0.0-8.0); Neut % (Auto) 91.5 % (16.0-70.0); Platelet Count 305 th/mm3 (150-450); Red Blood Count 4.22 mil/mm3 (4.50-5.90); Red Cell Distribution Width 14.9 % (11.6-17.2); White Blood Count 16.4 th/mm3 (4.0-11.0)
[2018-07-16] MEDS: ceFAZolin 2 GM Premix Inj 2 GM/50 ML PIGGYBACK IV.SIG SCH ×2 (06:07→14:23)
[2018-07-16 06:17] LABS: Calcium 8.4 mg/dL (8.5-10.1); Carbon Dioxide 20.2 meq/L (21.0-32.0); Potassium 4.4 meq/L (3.5-5.1)
--- NOTE | 2018-07-16 08:20 | P.PNCS ---
Subjective Colorectal Surgery Post Op Day #: 1 Interval history: Called last night regarding increased Blood sugar. Insulin pump stopped in PAR for BS 87. Pump restarted and coverage increased. Called later with urinary retention of 2000cc. Schroeder placed. Pt without complaints. Denies pain. FLD this AM. Objective Result Diagrams: 07/16/18 04:47 07/16/18 04:47 Objective Remarks: Abd: obese,soft. Assessment and Plan - Plan Decrease IVs FLD OOB Control Blood glucose. 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
[2018-07-16] MEDS: Pantoprazole Inj 40 MG Vial IV.PUSH SCH (09:13)
[2018-07-16] MEDS: Digoxin 125 MCG Tablet PO SCH (09:14)
[2018-07-16] MEDS: dilTIAZem CD 180 MG Capsule PO SCH ×2 (09:14→20:25)
[2018-07-16] MEDS: Atropine 1% Opth Drops 2 ML Bottle RIGHT EYE SCH (09:15)
[2018-07-16 10:01] LABS: Lymphocytes 6 % (9-44); Metamyelocytes 2 % (0-1); Monocytes 4 % (0-8)
[2018-07-16 10:02] LABS: Platelet Estimate Normal (Normal); Platelet Morphology Normal (Normal); RBC Morphology Normal (Normal)
[2018-07-17 04:24] LABS: Baso # (Auto) 0.1 th/mm3 (0.0-0.2); Baso % (Auto) 0.4 % (0.0-2.0); Eos # (Auto) 0.1 th/mm3 (0.0-0.4); Eos % (Auto) 0.4 % (0.0-4.0); Hematocrit 34.6 % (39.0-51.0); Hemoglobin 11.4 gm/dL (13.0-17.0); Lymph # (Auto) 0.7 th/mm3 (1.0-4.8); Lymph % (Auto) 5.2 % (9.0-44.0); Mean Corpuscular Hemoglobin 28.1 pg (27.0-34.0); Mean Corpuscular Volume 85.3 fL (80.0-100.0); Mean Platelet Volume 8.7 fL (7.0-11.0); Mono % (Auto) 6.6 % (0.0-8.0); Neut # (Auto) 12.7 th/mm3 (1.8-7.7); Neut % (Auto) 87.4 % (16.0-70.0); Platelet Count 278 th/mm3 (150-450); Red Blood Count 4.05 mil/mm3 (4.50-5.90); Red Cell Distribution Width 14.7 % (11.6-17.2); White Blood Count 14.5 th/mm3 (4.0-11.0)
[2018-07-17 04:50] LABS: Calcium 8.2 mg/dL (8.5-10.1); Carbon Dioxide 27.3 meq/L (21.0-32.0); Potassium 3.7 meq/L (3.5-5.1)
[2018-07-17] MEDS: Insulin NovoLIN Regular Correctional Sugar Inj SQ SCH ×2 (06:07→11:59)
[2018-07-17] MEDS: Digoxin 125 MCG Tablet PO SCH (08:50)
[2018-07-17] MEDS: Atropine 1% Opth Drops 2 ML Bottle RIGHT EYE SCH (08:50)
[2018-07-17] MEDS: dilTIAZem CD 180 MG Capsule PO SCH (08:50)
[2018-07-17] MEDS: Pantoprazole Inj 40 MG Vial IV.PUSH SCH (08:50)
[2018-07-17 09:28] VITALS: RESP 16
[2018-07-17 12:31] VITALS: O2SAT 99
--- NOTE | 2018-07-17 14:12 | P.PNCS ---
Subjective Colorectal Surgery Post Op Day #: 2 Interval history: Ballard removed this AM. Still has not voided. D/W pt. Will wait to put in ballard. Objective Result Diagrams: 07/17/18 02:48 07/17/18 02:48 Objective Remarks: Abd: obese,soft,wound clean Assessment and Plan - Plan OOB D/C today if able to void
[2018-07-17 15:47] VITALS: BP 136/63; TEMP 98
[2018-07-17 16:05] VITALS: PULSE 79
== END 2018-07-17 16:31 | disposition home or self-care (01) ==
LOC: HSDI 09:56 → HCPC 16:10
PROVIDERS: ADMIT Colon & Rectal Surgery; ATTEND Colon & Rectal Surgery